=== PATIENT | male | born 1940 | race Caucasian/White ===

== ENCOUNTER 2017-03-25 09:00 | Outpatient (RCR) | payer MEDICARE, MEDICAID, SELFPAY | END 2017-04-16 | LOC: PT 09:00 | PROVIDERS: PCP Internal Medicine; Visit Provider Internal Medicine | DX: R60.0 Localized edema (principal); I87.2 Venous insufficiency (chronic) (peripheral) | CPT/HCPCS: G8987; G8988; G8989; 97140; 97162; 98960 ==

== ENCOUNTER 2018-09-21 17:13 | Inpatient (IN) | payer MEDICARE, OTHER, SELFPAY ==
[2018-09-21 17:14] VITALS: BP 125/65; PULSE 85; RESP 18; TEMP 36.6; O2SAT 93; BMI 35.9
--- NOTE | 2018-09-21 17:21 | XR_ITS ---
XR hip LT 2-3V w/pelvis HISTORY: Posttraumatic pain ITS.REASON: pain ORDERING PHYSICIAN: Zach Man MD PATIENT AGE: 77 years COMPARISON: 10/01/2016 FINDINGS: There is a nondisplaced minimally impacted left femoral neck fracture. Mild osteoarthritic changes of the left hip. No evidence of dislocation. Prior Gamma nail placement on the right with old right intertrochanteric fracture. IMPRESSION: Nondisplaced mildly impacted transcervical left femoral neck fracture
[2018-09-21 17:32] VITALS: BP 139/63; PULSE 78; O2SAT 93
--- NOTE | 2018-09-21 17:44 | PC.NURSE ---
pt gone to xray
--- NOTE | 2018-09-21 17:47 | XR_ITS ---
XR chest AP HISTORY: Fall with pain ITS.REASON: fall ORDERING PHYSICIAN: Zach Man MD PATIENT AGE: 77 years COMPARISON: 07/16/2015 FINDINGS: Low lung volumes. Cardiomegaly with mild prominence of mediastinum which may be due to the AP portable supine technique. No lobar consolidation or collapse. No acute bony findings. Degenerative changes are present involving the right shoulder. IMPRESSION: No acute finding, cardiomegaly
[2018-09-21 18:13] VITALS: BP 135/60; PULSE 67; O2SAT 98
--- NOTE | 2018-09-21 18:16 | PC.NURSE ---
pt return from xray
--- NOTE | 2018-09-21 18:21 | HMH.EDGENADL ---
ED Disposition Clinical Impression: Closed left hip fracture Qualifiers: Encounter type: initial encounter Qualified Code(s): S72.002A - Fracture of unspecified part of neck of left femur, initial encounter for closed fracture Disposition: Admitted As Inpatient Condition on Discharge: Fair - Critical Care Critical Care Time: No Attestation: On 09/21/18, the high probability of a clinically significant, sudden or life threatening deterioration of the following system(s) required my full and direct attention, intervention and personal management. The time I documented below is in addition to time spent performing reported procedures but includes the following listed in this critical care notation. Medical Decision Making - Corby Inquiry Pt receiving controlled substance: Yes Corby was queried for this patient: No Reason not queried -: Emergent pt cond-no time Risks and benefits of using a controlled substance: were not discussed with pt by me Vital Signs: 09/21/18 17:14 09/21/18 17:32 09/21/18 18:13 Temperature 97.8 F Temperature Source Oral Pulse Rate [Left Radial] 85 78 67 Respiratory Rate 18 Blood Pressure [Right Arm] 125/65 139/63 135/60 Blood Pressure Mean [Right Arm] 85 88 85 Blood Pressure Source [Right Arm] Automatic Cuff Blood Pressure Position [Right Arm] Sitting 02 Sat by Pulse Oximetry 93 L 93 L 98 Oxygen Delivery Method Room Air Orders (Tests/Meds): ED MEDICATIONS Discontinued Medications Generic Name Dose Route Start Last Admin Trade Name Freq PRN Reason Stop Dose Admin Morphine Sulfate 4 mg 09/21/18 18:25 09/21/18 18:41 Morphine 4mg/Ml Syringe IV 09/21/18 18:26 4 mg ONCE ONE Administration Ondansetron HCl 4 mg 09/21/18 18:25 09/21/18 18:41 Zofran 4mg/2ml Vial IV 09/21/18 18:26 4 mg ONCE ONE Administration ORDERS Category Date Time Status Hip XR left minimum 2 views [XR hip LT 2-3V w/pelvis] Exams 09/21/18 17:21 Taken Stat XR chest AP Stat Exams 09/21/18 17:47 Taken Complete Blood Count Auto Diff Stat Lab 09/21/18 18:55 Received Comprehensive Metabolic Panel Stat Lab 09/21/18 18:55 Received PT/PTT Stat Lab 09/21/18 18:55 Received Urinalysis and Microscopic Stat Lab 09/21/18 18:29 Ordered - Radiology Data #1 Image(s): Chest, Hip Image Reviewed: Yes I reviewed the patient's radiology image Hip: Impacted subcapital fracture Chest: Cardiomegaly without acute process - ECG Data Tracing #1 EKG interpreted by Zach Man MD: Rhythm: sinus Rate: 67 [place]: Left Ectopy: none Conduction: Right bundle branch block ST Segment Changes: none T Wave Changes: none Q Waves: none No evidence of acute ischemia or injury Prior electrocardiagrams reviewed. No change from prior tracings. - Physician Consults Physician Consulted: Amador Time: 18:35 Reason -: Orthopedic Eval/Care Comment/Response: She will consult Additional Consult: Walt Luna Time: 18:35 Reason -: Admission Comment/Response: Agrees to admit the patient to the hospital. We discussed the patient's clinical information, including history, exam, laboratory and radiology results and ED course. Per hospital procedure, I will write temporary bridge inpatient orders on the patient. Specific orders requested by the admitting physician: Per orthopedics General Adult HPI - General Chief complaint: Fall Stated complaint: fall Time Seen by Provider: 09/21/18 18:22 Mode of Arrival: EMS Limitations: No Limitations Description of Symptoms (Recalled from ER Triage Doc. by RN): States he was cleaning the windows in his truck and slipped on the side door/floor area and hit his left hip on the ground. Denies hitting head, states he only hit his hip. - History of Present Illness HPI narrative: Brought in by ambulance for a fall with left hip injury. States that he landed on his left hip and has a large pocket knife in his back pocket that he someh
--- NOTE | 2018-09-21 18:24 | PC.NURSE ---
DR JUNIOR BEING PAGED AT THIS TIME
--- NOTE | 2018-09-21 18:25 | ED_ITS ---
ED Disposition Clinical Impression: Closed left hip fracture Qualifiers: Encounter type: initial encounter Qualified Code(s): S72.002A - Fracture of unspecified part of neck of left femur, initial encounter for closed fracture Disposition: Admitted As Inpatient Condition on Discharge: Fair - Critical Care Critical Care Time: No Attestation: On 09/21/18, the high probability of a clinically significant, sudden or life threatening deterioration of the following system(s) required my full and direct attention, intervention and personal management. The time I documented below is in addition to time spent performing reported procedures but includes the following listed in this critical care notation. Medical Decision Making - Corby Inquiry Pt receiving controlled substance: Yes Corby was queried for this patient: No Reason not queried -: Emergent pt cond-no time Risks and benefits of using a controlled substance: were not discussed with pt by me Vital Signs: 09/21/18 17:14 09/21/18 17:32 09/21/18 18:13 Temperature 97.8 F Temperature Source Oral Pulse Rate [Left Radial] 85 78 67 Respiratory Rate 18 Blood Pressure [Right Arm] 125/65 139/63 135/60 Blood Pressure Mean [Right Arm] 85 88 85 Blood Pressure Source [Right Arm] Automatic Cuff Blood Pressure Position [Right Arm] Sitting 02 Sat by Pulse Oximetry 93 L 93 L 98 Oxygen Delivery Method Room Air Orders (Tests/Meds): ED MEDICATIONS Discontinued Medications Generic Name Dose Route Start Last Admin Trade Name Freq PRN Reason Stop Dose Admin Morphine Sulfate 4 mg 09/21/18 18:25 09/21/18 18:41 Morphine 4mg/Ml Syringe IV 09/21/18 18:26 4 mg ONCE ONE Administration Ondansetron HCl 4 mg 09/21/18 18:25 09/21/18 18:41 Zofran 4mg/2ml Vial IV 09/21/18 18:26 4 mg ONCE ONE Administration ORDERS Category Date Time Status Hip XR left minimum 2 views [XR hip LT 2-3V w/pelvis] Exams 09/21/18 17:21 Elder en Stat XR chest AP Stat Exams 09/21/18 17:47 Taken Complete Blood Count Auto Diff Stat Lab 09/21/18 18:55 Received Comprehensive Metabolic Panel Stat Lab 09/21/18 18:55 Received PT/PTT Stat Lab 09/21/18 18:55 Received Urinalysis and Microscopic Stat Lab 09/21/18 18:29 Ordered - Radiology Data #1 Image(s): Chest, Hip Image Reviewed: Yes I reviewed the patient's radiology image Hip: Impacted subcapital fracture Chest: Cardiomegaly without acute process - ECG Data Tracing #1 EKG interpreted by Zach Man MD: Rhythm: sinus Rate: 67 [place]: Left Ectopy: none Conduction: Right bundle branch block ST Segment Changes: none T Wave Changes: none Q Waves: none No evidence of acute ischemia or injury Prior electrocardiagrams reviewed. No change from prior tracings. - Physician Consults Physician Consulted: Amador Time: 18:35 Reason -: Orthopedic Eval/Care Comment/Response: She will consult Additional Consult: Walt Luna Time: 18:35 Reason -: Admission Comment/Response: Agrees to admit the patient to the hospital. We discussed the patient's clinical information, including history, exam, laboratory and radiology resu
--- NOTE | 2018-09-21 18:27 | PC.NURSE ---
SPEAKING WITH DR JUNIOR AT THIS TIME
--- NOTE | 2018-09-21 18:32 | PC.NURSE ---
SPEAKING WITH DR ECHEVERRIA
--- NOTE | 2018-09-21 19:16 | PC.NURSE ---
report given to jyothi
[2018-09-21 19:17] LABS: Alanine Aminotransferase 29 U/L (12-78); Albumin Level 3.4 gm/dL (3.4-5.0); Albumin/Globulin Ratio 1.1 (1.1-1.8); Alkaline Phosphatase 49 U/L (46-116); Anion Gap 12.9 mEq/L (5-15); Aspartate Amino Transferase 15 U/L (15-37); Bilirubin,Total 0.5 mg/dL (0.2-1.0); Blood Urea Nitrogen 21 mg/dL (7-18); Carbon Dioxide 26 mmol/L (21.0-32.0); Chloride 112 mmol/L (98-107); Creatinine Clearance Estimated 91 mL/min (50-200); Creatinine,Serum 1.15 mg/dL (0.70-1.30); Estimated Glomerular Filt Rate 62 ml/min (>60); GFR (African American) 75 ML/MIN (>60); Glucose 119 mg/dL (74-106); Potassium 3.9 mmoL/L (3.5-5.1); Sodium 147 mmol/L (136-145); Total Protein,Serum 6.4 gm/dL (6.4-8.2)
[2018-09-21 19:21] LABS: Activated Partial Thrombo Time 26.7 seconds (23.6-34.0); INR 1.03 (0.9-1.1); Prothrombin Time 10.7 seconds (9.4-11.8)
[2018-09-21 19:26] LABS: Basophils % 0.1 % (0.1-2.0); Eosinophils % 0.2 % (0.1-12.0); Hemoglobin 14.1 g/dL (14.1-18.0); Lymphocytes # 1.6 K/mm3 (0.7-4.5); Lymphocytes % 13.2 % (10-50); Mean Corpuscular HGB Conc 32.8 g/dL (31.8-35.4); Mean Corpuscular Hemoglobin 28.1 pg (27.0-31.2); Mean Corpuscular Volume 85.8 fl (80-94); Monocytes # 0.8 K/mm3 (0.1-1.0); Monocytes % 6.6 % (1.7-9.3); Neutrophils # 9.5 K/mm3 (1.8-7.8); Neutrophils % 79.8 % (37.0-80.0); Platelet Count 254 K/mm3 (142-424); Red Blood Count 5.02 M/mm3 (4.60-6.20); White Blood Count 11.9 K/mm3 (4.8-10.8)
[2018-09-21 19:41] VITALS: BP 136/67; PULSE 65; RESP 17; TEMP 36.8; O2SAT 97
--- NOTE | 2018-09-21 19:42 | PC.NURSE ---
Received report from Linus Macdonald RN
[2018-09-21 20:07] VITALS: BP 160/77; PULSE 82; RESP 18; TEMP 37.1; O2SAT 94; BMI 34.0
--- NOTE | 2018-09-21 20:07 | PC.NURSE ---
pt arrived to floor via stretcher per ED staff
--- NOTE | 2018-09-21 20:42 | CT_ITS ---
CT hip LT wo con INDICATION: Left hip pain following injury, evaluate fracture ITS.REASON: L hip fx ORDERING PHYSICIAN: Brayden Luna MD PATIENT AGE: 77 years COMPARISON: None TECHNIQUE: Axial images are obtained without contrast. Sagittal and coronal reformatted images are reviewed as well. All CT scans at the facility use one or more dose reduction, viz: automated exposure control, ma/kV adjustment per patient size (including targeted exams where dose is matched to indication, i.e. head), or iterative reconstruction technique. FINDINGS: There is a mildly impacted transcervical femoral neck fracture. There is minimal anterior displacement and external rotation of the distal fracture fragment No evidence of dislocation. No lytic or blastic change. There are mild osteoarthritic changes. Prostate is mildly enlarged. IMPRESSION: Minimally displaced and impacted transcervical left femoral neck fracture
--- NOTE | 2018-09-21 20:50 | PC.NURSE ---
Pt taken by bed to CT at this time by Rad staff.
[2018-09-21 20:58] LABS: Microscopic, Urine URINE MICROSCOPIC (MICROSCOPIC)
[2018-09-21 21:00] LABS: Appearance,Urine CLEAR (Clear); Bilirubin,Urine Negative (Negative); Blood, Urine Negative (Negative); Color,Urine YELLOW (Yellow); Glucose,Urine (UA) Negative (Negative); Ketones,Urine Negative (Negative); Leukocyte Esterase,Urine Negative (Negative); Nitrate,Urine Negative (Negative); Protein,Urine Negative (Negative)
[2018-09-21 21:10] LABS: Bacteria,Urine Trace /lpf
[2018-09-21 21:45] VITALS: O2SAT 94
[2018-09-22] VITALS (22 sets, daily range): BP systolic 116–153; BP diastolic 47–84; PULSE 68–86; RESP 16–20; TEMP 36.4–43; O2SAT 94–99; BMI 34.0
--- NOTE | 2018-09-22 06:44 | PC.NURSE ---
Pt. slept at interval this shift. Pt did receive a bath. pt c/o pain x1 after being rolled for bath. prn pain medication given. vss. will cont. to monitor.
--- NOTE | 2018-09-22 07:09 | HMH.PHAVTE ---
[facility] VTE Monitoring - Patient Demographics Admission date: 09/21/18 Report Date: 09/22/18 Time: 07:09 Allergies/Adverse Reactions: Patient Allergies No Known Allergies Allergy (Unverified 04/06/17 14:29) Height: 1.83 m Weight: 113.993 kg Patient Problems: Current Active Problems (Updated 09/21/18 @ 18:35 by Zach Man MD) Closed left hip fracture (Acute) - VTE Risk Labs: VTE Related Lab Results Hgb 14.1 g/dL (14.1-18.0) 09/21/18 18:55 Hct 43.0 % (42.0-52.0) 09/21/18 18:55 Plt Count 254 K/mm3 (142-424) 09/21/18 18:55 PT 10.7 seconds (9.4-11.8) 09/21/18 18:55 INR 1.03 (0.9-1.1) 09/21/18 18:55 APTT 26.7 seconds (23.6-34.0) 09/21/18 18:55 BUN 21 mg/dL (7-18) H 09/21/18 18:55 Creatinine 1.15 mg/dL (0.70-1.30) 09/21/18 18:55 Estimated Creat Clear 91 mL/min (50-200) 09/21/18 18:55 Was VTE Risk Assessment Performed: Yes VTE Score: 4 VTE Risk Level: Low Risk Clinical Trial Participant: No - Prophylaxis VTE Prophylaxis Ordered?: Yes Types of VTE Prophylaxis: TEDS Knee High
--- NOTE | 2018-09-22 08:35 | CA_ITS ---
PROCEDURE: 2-D M-mode and color Doppler study INDICATIONS FOR THE TEST: Chest pain COPD Heart Murmur Tobacco Smoking Palpitations Fatigue Syncope Edema Hypertension Diabetes Mellitus Rheumatic Fever SOB VELAZQUEZ Obesity Hyperlipidemia Family History HD Additional History MURMUR,PRE-OP FX HIP TDS PT FLAT DUE TO HIP FX PATIENT INFORMATION HEIGHT: 72 WEIGHT:251 GENDER: Male B/P:135/60 2-D/M-MODE INTERPRETATION: 2-D MEASUREMENTS OBSERVED VALUES IN CMS Right Ventricular Dimension (RVDd) 2.1 Interventricular Septum (Thickness)(IVsd) 1.4 Left Ventricular Internal Dimensions(LVIDd) 5.4 Left Ventricular Posterior Wall (Thickness)(LVPWd) 1.4 Aortic Root 3.4 Aortic Cusp Separation 1.1 Left Atrial Dimensions (LAD) 3.7 2D 1. Left atrium is mildly enlarged, left ventricle is normal size, mild concentric left ventricular hypertrophy, visually estimated ejection fraction 55% with no regional wall motion abnormality. 2. The right atrium and right ventricle are normal size and contractility. 3. The aortic valve is thickened and calcified with restriction in the leaflet mobility 4. The mitral and tricuspid valvular grossly normal. 5. The pulmonic valve is poorly visualized. 6. No significant pericardial effusion noted. DOPPLER INTERROGATION: 1. The maximum aortic out flow velocity recorded study 3.7 m/s, resulting in a mean gradient across valve of 34 mmHg, valve area is 1.3 sq cm represents moderate aortic stenosis, there is mild aortic insufficiency. 2. The mitral inflow velocity within normal range, there is no mitral stenosis, there is mild mitral regurgitation, Doppler evidence of impaired LV relaxation seen, there is no tissue Doppler performed. 3. Mild tricuspid regurgitation, tricuspid regurgitation jet velocity is inadequate for calculation of the right ventricular systolic pressure. CONCLUSION: 1. Mildly enlarged left atrium, normal left ventricular size, mild concentric left ventricular hypertrophy, visually estimated ejection fraction of 55% with no regional wall motion abnormality, Doppler evidence of impaired relaxation seen. 2. Thickened and calcified aortic valve with mean gradient across valve of 34 mmHg, aortic valve area of 1.3 sq cm represents moderate aortic stenosis, there is mild aortic insufficiency. 3. Mild tricuspid regurgitation 4. No significant pericardial effusion noted.
--- NOTE | 2018-09-22 09:11 | XR_ITS ---
EXAM: XR lumbar spine 2-3V HISTORY: ITS.REASON: back pain s/p fall ORDERING PHYSICIAN: Brayden Luna MD PATIENT AGE: 77 years COMPARISON: None FINDINGS: There is normal alignment. No obvious fracture or dislocation is evident. Mild osteophyte formation at L3 IMPRESSION: No acute finding
--- NOTE | 2018-09-22 09:11 | XR_ITS ---
EXAM: XR thoracic spine 2V HISTORY: ITS.REASON: back pain s/p fall Comparison: None FINDINGS: This exam is very limited. The upper thoracic spine is not adequately visualized on the lateral view and cannot be cleared radiographically. If symptoms persists, consider CT for follow-up evaluation. The mid and lower aspect of the thoracic spine has an unremarkable appearance. IMPRESSION: 1. Incomplete visualization of the upper thoracic spine. 2. Unremarkable mid and lower thoracic spine
--- NOTE | 2018-09-22 09:13 | HMH.ORTHOCON ---
*Admission Date: 09/21/18 *Reason for consult:: left hip fracture *History of present illness: 77 year-old gentleman who fell at home yesterday as he was cleaning the windows in his truck. He slipped and fell onto the left side; he had severe pain in the left hip and was unable to stand. EMS brought him to [facility] where a hip fracture was diagnosed. He denies numbness or tingling in the LLE, but does report pain in the lower back. He fractured the right hip several years ago and had surgery for this. He has mild dementia but appears healthy otherwise; his PCP is Dr. Palacio, admitted to Dr. Luna, who is evaluating him this morning. The patient is not on any anticoagulants and admission labs were all within normal limits. Review of Systems - Review of Systems Review of systems:: pertinent systems reviewed and negative unless documented below - Constitutional Denies weakness - Eyes Denies change in vision - ENT Denies dizziness - *Cardiovascular Denies chest pain, Denies shortness of breath - *Gastrointestinal Denies abdominal pain - *Musculoskeletal Reports joint pain - *Neurologic Denies headache(s), Denies numbness, Denies weakness [facility] History I have reviewed the patient's past medical history: Yes *Have you ever received a pneumonia vaccine?: Yes *Have you received a flu vaccine this season?: Yes Laterality Cases: Right: Arthroscopy Shoulder, Other (R hip DHS for fracture ) Other Surgeries: Yes: Colon Resection (Pt states he had some of his colton removed.) Fractures: Yes ((R) hip) - *Social History Educational Level: Completed High School Alcohol Intake: never *Occupational Status:: retired Housing: house Household Members: spouse *Travel in the last 8 weeks: None - Psychiatric History Expresses thoughts of harming self/others: None Suicide Plan Description: No Plan Family Hx:: No significant family history Meds Home Medications Medication Instructions Recorded Confirmed Type Aspirin [Aspir 81] 81 mg PO DAILY 09/21/18 09/21/18 History Ibuprofen [Ibuprofen 200MG Capsule] 200 mg PO QIDP PRN 09/21/18 09/21/18 History predniSONE [Deltasone 10mg tablet] 20 tab PO BID 09/21/18 09/21/18 History Allergies Allergy/AdvReac Type Severity Reaction Status Date / Time No Known Allergies Allergy Unverified 04/06/17 14:29 Exam Vital signs and Labs for Last 24 Hours: Temp Pulse Resp BP Pulse Ox 98.7 F 73 18 116/47 L 95 09/22/18 07:30 09/22/18 07:30 09/22/18 07:30 09/22/18 07:30 09/22/18 07:30 Laboratory Results - last 24 hr 09/21/18 18:55: WBC 11.9 H, RBC 5.02, Hgb 14.1, Hct 43.0, MCV 85.8, MCH 28.1, MCHC 32.8, RDW 14.0, Plt Count 254, MPV 7.0 L, Neut % (Auto) 79.8, Lymph % (Auto) 13.2, [place] % (Auto) 6.6, Eos % (Auto) 0.2, Baso % (Auto) 0.1, Neut # (Auto) 9.5 H, Lymph # (Auto) 1.6, [place] # (Auto) 0.8, Eos # (Auto) 0.0, Baso # (Auto) 0.0 09/21/18 18:55: PT 10.7, INR 1.03, APTT 26.7 09/21/18 18:55: Sodium 147 H, Potassium 3.9, Chloride 112 H, Carbon Dioxide 26, Anion Gap 12.9, BUN 21 H, Creatinine 1.15, Estimated Creat Clear 91, Estimated GFR 62, Est GFR ( Amer) 75, Glucose 119 H, Calcium 9.0, Total Bilirubin 0.5, AST 15, ALT 29, Alkaline Phosphatase 49, Total Protein 6.4, Albumin 3.4, Globulin 3.0, Albumin/Globulin Ratio 1.1 09/21/18 20:50: Urine Color Yellow, Urine Appearance Clear, Urine pH 6.0, Ur Specific [place] 1.020, Urine Protein Negative, Urine Glucose (UA) Negative, Urine Ketones Negative, Urine Blood Negative, Urine Nitrate Negative, Urine Bilirubin Negative, Urine Urobilinogen 1.0, Ur Leukocyte Esterase Negative, Urine Bacteria Trace I & O for Last 24 hours: Intake & Output 09/19/18 09/20/18 09/21/18 09/22/18 11:59 11:59 11:59 11:59 Intake Total 249 / 249 Output Total 350 / 350 Balance -101 / -101 Weight 251 lb 5 oz - Constitutional no acute distress, obese, cooperative - *Routine HEENT Exam Head: Present: normocephalic, atraumatic Eye: Present: EOMI
--- NOTE | 2018-09-22 09:16 | P.CONS_ITS ---
*Admission Date: 09/21/18 *Reason for consult:: left hip fracture *History of present illness: 77 year-old gentleman who fell at home yesterday as he was cleaning the windows in his truck. He slipped and fell onto the left side; he had severe pain in the left hip and was unable to stand. EMS brought him to [facility] where a hip fracture was diagnosed. He denies numbness or tingling in the LLE, but does report pain in the lower back. He fractured the right hip several years ago and had surgery for this. He has mild dementia but appears healthy otherwise; his PCP is Dr. Palacio, admitted to Dr. Luna, who is evaluating him this morning. The patient is not on any anticoagulants and admission labs were all within normal limits. Review of Systems - Review of Systems Review of systems:: pertinent systems reviewed and negative unless documented be low - Constitutional Denies weakness - Eyes Denies change in vision - ENT Denies dizziness - *Cardiovascular Denies chest pain, Denies shortness of breath - *Gastrointestinal Denies abdominal pain - *Musculoskeletal Reports joint pain - *Neurologic Denies headache(s), Denies numbness, Denies weakness [facility] History I have reviewed the patient's past medical history: Yes *Have you ever received a pneumonia vaccine?: Yes *Have you received a flu vaccine this season?: Yes Laterality Cases: Right: Arthroscopy Shoulder, Other (R hip DHS for fracture ) Other Surgeries: Yes: Colon Resection (Pt states he had some of his colton removed.) Fractures: Yes ((R) hip) - *Social History Educational Level: Completed High School Alcohol Intake: never *Occupational Status:: retired Housing: house Household Members: spouse *Travel in the last 8 weeks: None - Psychiatric History Expresses thoughts of harming self/others: None Suicide Plan Description: No Plan Family Hx:: No significant family history Meds Home Medications Medication Instructions Recorded Confirmed Type Aspirin [Aspir 81] 81 mg PO DAILY 09/21/18 09/21/18 History Ibuprofen [Ibuprofen 200MG Capsule] 200 mg PO QIDP PRN 09/21/18 09/21/18 History predniSONE [Deltasone 10mg tablet] 20 tab PO BID 09/21/18 09/21/18 History Allergies Allergy/AdvReac Type Severity Reaction Status Date / Time No Known Allergies Allergy Unverified 04/06/17 14:29 Exam Vital signs and Labs for Last 24 Hours: Temp Pulse Resp BP Pulse Ox 98.7 F 73 18 116/47 L 95 09/22/18 07:30 09/22/18 07:30 09/22/18 07:30 09/22/18 07:30 09/22/18 07:30 Laboratory Results - last 24 hr 09/21/18 18:55: WBC 11.9 H, RBC 5.02, Hgb 14.1, Hct 43.0, MCV 85.8, MCH 28.1, MCHC 32.8, RDW 14.0, Plt Count 254, MPV 7.0 L, Neut % (Auto) 79.8, Lymph % (Auto) 13.2, [place] % (Auto) 6.6, Eos % (Auto) 0.2, Baso % (Auto) 0.1, Neut # (Auto) 9.5 H, Lymph # (Auto) 1.6, [place] # (Auto) 0.8, Eos # (Auto) 0.0, Baso # (Auto) 0.0 09/21/18 18:55: PT 10.7, INR 1.03, APTT 26.7 09/21/18 18:55: Sodium 147 H, Potassium 3.9, Chloride 112 H, Carbon Dioxide 26, Anion Gap 12.9, BUN 21 H, Creatinine 1.15, Estimated Creat Clear 91, Estimated GFR 62, Est GFR ( Amer) 75, Glucose 119 H, Calcium 9.0, Total Bilirubin 0.5, AST 15, ALT 29, Alkaline Phosphatase 49, Total Protein 6.4, Albumin 3.4, Globulin 3.0, Albumin/Globulin Ratio 1.1 09/21/18 20:50: Urine Color Yellow, Urine Appearance Clear, Urine pH 6.0, Ur
--- NOTE | 2018-09-22 10:30 | PC.NURSE ---
Patient off floor for surgery.
--- NOTE | 2018-09-22 10:56 | HMH.HP ---
*Admission Date: 09/21/18 *Chief complaint: fall, left hip pain *History of present illness: 77 year old male with mild dementia presented to ED with left hip pain following a fall at home. Patient denies any dizziness, shortness of breath or CP prior to fall. Reports he lost his balance, which happens all the time. He denies any cardiac or pulmonary history. No exertional symptoms, although states he doesn't do much. In the ED, he was found to have left hip fracture. He was admitted for surgery consult and repair. [facility] History I have reviewed the patient's past medical history: Yes *Have you ever received a pneumonia vaccine?: Yes *Have you received a flu vaccine this season?: Yes Laterality Cases: Right: Arthroscopy Shoulder, Total Hip Replacement, Other (R hip DHS for fracture ) Other Surgeries: Yes: Colon Resection (Pt states he had some of his colton removed.) Fractures: Yes ((R) hip) - *Social History Educational Level: Completed High School Alcohol Intake: never *Occupational Status:: retired Housing: house Household Members: spouse *Travel in the last 8 weeks: None - Psychiatric History Expresses thoughts of harming self/others: None Suicide Plan Description: No Plan Family Hx:: No significant family history Review of Systems - Review of Systems Review of systems:: pertinent systems reviewed and negative unless documented below - Constitutional Reports weakness - *Musculoskeletal Reports joint pain, Reports back pain - *Neurologic Denies dizziness, Denies headache(s), Denies numbness, Denies weakness Meds Home Medications Medication Instructions Recorded Confirmed Type Aspirin [Aspir 81] 81 mg PO DAILY 09/21/18 09/21/18 History Ibuprofen [Ibuprofen 200MG Capsule] 200 mg PO QIDP PRN 09/21/18 09/21/18 History predniSONE [Deltasone 10mg tablet] 20 tab PO BID 09/21/18 09/21/18 History Allergies Allergy/AdvReac Type Severity Reaction Status Date / Time No Known Allergies Allergy Unverified 04/06/17 14:29 Exam Vital signs and Labs for Last 24 Hours: Temp Pulse Resp BP Pulse Ox 98.7 F 73 18 116/47 L 94 L 09/22/18 07:30 09/22/18 07:30 09/22/18 07:30 09/22/18 07:30 09/22/18 08:00 Laboratory Results - last 24 hr 09/21/18 18:55: WBC 11.9 H, RBC 5.02, Hgb 14.1, Hct 43.0, MCV 85.8, MCH 28.1, MCHC 32.8, RDW 14.0, Plt Count 254, MPV 7.0 L, Neut % (Auto) 79.8, Lymph % (Auto) 13.2, [place] % (Auto) 6.6, Eos % (Auto) 0.2, Baso % (Auto) 0.1, Neut # (Auto) 9.5 H, Lymph # (Auto) 1.6, [place] # (Auto) 0.8, Eos # (Auto) 0.0, Baso # (Auto) 0.0 09/21/18 18:55: PT 10.7, INR 1.03, APTT 26.7 09/21/18 18:55: Sodium 147 H, Potassium 3.9, Chloride 112 H, Carbon Dioxide 26, Anion Gap 12.9, BUN 21 H, Creatinine 1.15, Estimated Creat Clear 91, Estimated GFR 62, Est GFR ( Amer) 75, Glucose 119 H, Calcium 9.0, Total Bilirubin 0.5, AST 15, ALT 29, Alkaline Phosphatase 49, Total Protein 6.4, Albumin 3.4, Globulin 3.0, Albumin/Globulin Ratio 1.1 09/21/18 20:50: Urine Color Yellow, Urine Appearance Clear, Urine pH 6.0, Ur Specific [place] 1.020, Urine Protein Negative, Urine Glucose (UA) Negative, Urine Ketones Negative, Urine Blood Negative, Urine Nitrate Negative, Urine Bilirubin Negative, Urine Urobilinogen 1.0, Ur Leukocyte Esterase Negative, Urine Bacteria Trace I & O for Last 24 hours: Intake & Output 09/19/18 09/20/18 09/21/18 09/22/18 11:59 11:59 11:59 11:59 Intake Total 249 / 249 Output Total 350 / 350 Balance -101 / -101 Weight 251 lb 5 oz Narrative: ALert and oriented x3 with some confusion. Rate and rhythm regular. 3/6 holosystolic murmur, radiates to bilateral carotids. 1+ BLE edema. Left leg externally rotated at rest, pulses, motor and sensation intact. Lung sounds clear and equal. Abdomen soft and nontender. ENT exam unremarkable. Assessment and Plan (1) Closed left hip fracture Current visit: Yes Status: Acute Qualifiers: Encounter type: initial enco
--- NOTE | 2018-09-22 10:59 | P.HP_ITS ---
*Admission Date: 09/21/18 *Chief complaint: fall, left hip pain *History of present illness: 77 year old male with mild dementia presented to ED with left hip pain following a fall at home. Patient denies any dizziness, shortness of breath or CP prior to fall. Reports he lost his balance, which happens all the time. He denies any cardiac or pulmonary history. No exertional symptoms, although states he doesn't do much. In the ED, he was found to have left hip fracture. He was admitted for surgery consult and repair. [facility] History I have reviewed the patient's past medical history: Yes *Have you ever received a pneumonia vaccine?: Yes *Have you received a flu vaccine this season?: Yes Laterality Cases: Right: Arthroscopy Shoulder, Total Hip Replacement, Other (R hip DHS for fracture ) Other Surgeries: Yes: Colon Resection (Pt states he had some of his colton removed.) Fractures: Yes ((R) hip) - *Social History Educational Level: Completed High School Alcohol Intake: never *Occupational Status:: retired Housing: house Household Members: spouse *Travel in the last 8 weeks: None - Psychiatric History Expresses thoughts of harming self/others: None Suicide Plan Description: No Plan Family Hx:: No significant family history Review of Systems - Review of Systems Review of systems:: pertinent systems reviewed and negative unless documented below - Constitutional Reports weakness - *Musculoskeletal Reports joint pain, Reports back pain - *Neurologic Denies dizziness, Denies headache(s), Denies numbness, Denies weakness Meds Home Medications Medication Instructions Recorded Confirmed Type Aspirin [Aspir 81] 81 mg PO DAILY 09/21/18 09/21/18 History Ibuprofen [Ibuprofen 200MG Capsule] 200 mg PO QIDP PRN 09/21/18 09/21/18 History predniSONE [Deltasone 10mg tablet] 20 tab PO BID 09/21/18 09/21/18 History Allergies Allergy/AdvReac Type Severity Reaction Status Date / Time No Known Allergies Allergy Unverified 04/06/17 14:29 Exam Vital signs and Labs for Last 24 Hours: Temp Pulse Resp BP Pulse Ox 98.7 F 73 18 116/47 L 94 L 09/22/18 07:30 09/22/18 07:30 09/22/18 07:30 09/22/18 07:30 09/22/18 08:00 Laboratory Results - last 24 hr 09/21/18 18:55: WBC 11.9 H, RBC 5.02, Hgb 14.1, Hct 43.0, MCV 85.8, MCH 28.1, MCHC 32.8, RDW 14.0, Plt Count 254, MPV 7.0 L, Neut % (Auto) 79.8, Lymph % (Auto) 13.2, [place] % (Auto) 6.6, Eos % (Auto) 0.2, Baso % (Auto) 0.1, Neut # (Auto) 9.5 H, Lymph # (Auto) 1.6, [place] # (Auto) 0.8, Eos # (Auto) 0.0, Baso # (Auto) 0.0 09/21/18 18:55: PT 10.7, INR 1.03, APTT 26.7 09/21/18 18:55: Sodium 147 H, Potassium 3.9, Chloride 112 H, Carbon Dioxide 26, Anion Gap 12.9, BUN 21 H, Creatinine 1.15, Estimated Creat Clear 91, Estimated GFR 62, Est GFR ( Amer) 75, Glucose 119 H, Calcium 9.0, Total Bilirubin 0.5, AST 15, ALT 29, Alkaline Phosphatase 49, Total Protein 6.4, Albumin 3.4, Globulin 3.0, Albumin/Globulin Ratio 1.1 09/21/18 20:50: Urine Color Yellow, Urine Appearance Clear, Urine pH 6.0, Ur Specific [place] 1.020, Urine Protein Negative, Urine Glucose (UA) Negative, Urine Ketones Negative, Urine Blood Negative, Urine Nitrate Negative, Urine Bilirubin Negative, Urine Urobilinogen 1.0, Ur Leukocyte Esterase Negative, Urine Bacteria Trace I & O for Last 24 hours: Intake & O
--- NOTE | 2018-09-22 11:18 | P.PN_ITS ---
[facility] Anesthesia Checklist - Patient Identification Patient Identification: Arm Band - Structural Data Admitted From: Home Planned Operative Procedure/s: left hip hemiarthroplasty Consent for Planned Operative Procedure(s) Verified: Yes Verified Documents: Surgical Consent, History and Physical - NPO Status Verified Time NPO: 00:00 - Additional verifications Anesthesia Reactions: No - Airway Assessment C-Spine Mobility Assessed: Yes (mp2) TMJ Mobility Assessed: Yes Dentition: Good Dentition - Neurological Assessment Level of Consciousness: Awake, Alert - Anesthesia Plan Anesthesia Risk discussed: Yes Anesthesia Plan: Verified ASA Class: III Anesthesia Type: Spinal (with MAC) [facility] History I have reviewed the patient's past medical history: Yes Medical History: Reports:: Valvular Heart Disease *Have you ever received a pneumonia vaccine?: Yes *Have you received a flu vaccine this season?: Yes Laterality Cases: Right: Arthroscopy Shoulder, Total Hip Replacement, Other (R hip DHS for fracture ) Other Surgeries: Yes: Colon Resection (Pt states he had some of his colton removed.) Fractures: Yes ((R) hip) - *Social History Educational Level: Completed High School Alcohol Intake: never *Occupational Status:: retired Housing: house Household Members: spouse *Travel in the last 8 weeks: None - Psychiatric History Expresses thoughts of harming self/others: None Suicide Plan Description: No Plan Family Hx:: No significant family history
--- NOTE | 2018-09-22 15:59 | P.PN_ITS ---
[facility] Anesthesia Record Part I Intake, IV Amount: 2,100 Estimated blood loss (mL): 800 Urine output (mL): 400 Blood Products used (#): none Blood Pressure: 137/67 SaO2: 96 Pulse Rate: 72 Respiratory Rate: 18 Temperature: 98.7 F Patient is:: Awake, Drowsy, Stable Stable to PACU at:: 15:52
--- NOTE | 2018-09-22 16:00 | P.PN_ITS ---
[facility] Anesthesia Record Part II Discharge Time: 16:22 Destination: Medical Surgical Department PACU nurse assessment reviewed?: Yes Patient Condition:: Good Anesthesia Complications:: None Swallowing reflex intact?: Yes Cyanosis?: No
--- NOTE | 2018-09-22 16:01 | XR_ITS ---
XR pelvis 1-2V HISTORY: Follow-up ORIF ITS.REASON: s/p L hip hemiarthroplasty ORDERING PHYSICIAN: Brayden Luna MD PATIENT AGE: 77 years Comparison: None FINDINGS: Status post left hip arthroplasty with a bipolar prosthesis present. There is good alignment. There is postsurgical gas. There has been a prior Gamma nail inserted on the right with an old right proximal femur fracture. IMPRESSION: Good alignment status post left bipolar prosthesis placement
--- NOTE | 2018-09-22 16:29 | PC.NURSE ---
1612- radiology @ bedside getting xrays at this time.
--- NOTE | 2018-09-22 16:32 | PC.NURSE ---
1620- detailed report called to neo worthy rn on 2nd floor. 1623- pt transported to 2nd floor per sc rn & cd rn. left in care of ld rn with bed locked, in lowest position, call chinchilla in reach, & in stable condition.
[2018-09-22 16:40] LABS: Microscopic,Cath URINE MICROSCOPIC (MICROSCOPIC)
[2018-09-22 16:52] LABS: Appearance,Urine/Cath CLEAR (Clear); Bilirubin,Cath Negative (Negative); Blood, Urine/Cath Negative (Negative); Color,Urine/Cath YELLOW (Yellow); Glucose,Urine/Cath (UA) Negative (Negative); Ketones,Urine/Cath Negative (Negative); Leukocyte Esterase,Cath Negative (Negative); Nitrate,Cath Negative (Negative); Protein,Urine/Cath Negative (Negative); Specific Gravity, Urine/Cath 1.025 (1.005-1.030); Urobilinogen,Cath 0.2 EU/dl (0.2)
[2018-09-22 17:04] LABS: Bacteria,Urine/Cath TRACE /lpf; WBC,Urine/Cath Occasional #/hpf (0-3)
--- NOTE | 2018-09-22 17:40 | HMH.OPNOTE ---
Date of procedure: 09/22/18 Pre-op Diagnosis:: LEFT femoral neck fracture Post-op Diagnosis:: LEFT femoral neck fracture Procedure performed:: LEFT hip hemiarthroplasty Surgeon:: Lucero English MD Steward/Stewardess Second(s):: Ivis Wagner CST VALIDATION CONSULTANT:: Sukhwinderedilson Washburn Anesthesia: MAC, spinal Estimated blood loss (mL): 200 Clinical Note:: 77-year-old gentleman with a femoral neck fracture of the left hip. This was sustained during a mechanical fall yesterday at home. He was cleaning the windows in his truck and lost his balance, falling onto the left side. He had immediate pain and inability to ambulate, so EMS brought him to [facility] for work-up. He says that he often loses his balance and falls, and has had a right hip fracture in the past treated surgically. He denies any medical comorbidities but does have a mild case of dementia. He denies any symptoms preceding his current fall, including dizziness, lightheadedness, chest pain or shortness of breath. His primary care is Dr. Palacio; he was admitted to Dr. Luna. Dr. Luna's examination revealed a new cardiac murmur and echocardiogram was performed. This showed moderate aortic stenosis but normal ejection fraction, and he was cleared for surgery with moderate risk. His fracture appeared to be a impacted femoral neck fracture, but I questioned the displacement on lateral x-ray. A CT scan was performed, which revealed anterior displacement of the neck relative to the head and I felt there was simply not enough head present to gain purchase with cannulated screws and percutaneous pinning would inevitably fail. My recommendation was a hemiarthroplasty, and I discussed this with his family. I discussed the procedure including the technique, expected perioperative course, need for physical therapy after surgery, and the risks of the procedure. Specifically, I discussed the risk of infection, bleeding, fracture, persistent pain, and loss of mobility after surgery. The patient and his family vocalized understanding and informed consent was obtained. Operative findings:: IMPLANTS: Ninfa Accolade II cemented femoral stem, size 7 (127 deg) bipolar head: 56mm OD (28mm ID) w/28mm inner head component (+0 offset) Operative note:: The patient was identified in preoperative holding and the L hip signed by myself. He was then taken to the operating room where spinal anesthetic administered and IV sedation given. 2g Ancef was infused intravenously. The patient was then placed in the right lateral decubitus position with a peg board lateral positioner, padding all bony prominences and using an axillary roll. The left hip was then prepped and draped in the usual sterile fashion. Timeout was performed, identifying the correct patient, correct procedure and correct site. The procedure was begun by making a longitudinal, curvilinear incision over the posterolateral aspect the the left hip, centered over the greater trochanter. Subcutaneous tissue was dissected with cautery until fascia was encountered. The fascia was incised in line with the shaft of the femur distally and curved proximally; fibers of the gluteus radha were bluntly spread with finger dissection. Charnley retractor was placed under the fascia. The hip joint was visualized and there was moderate fracture hematoma present. This was evacuated and the short external rotators identified. The piriformis was tagged and reflected off the femur. Capsulotomy was completed and leaflets tagged. Corkscrew was inserted into the femoral head and it was removed intact; it measured around 56-57mm in diameter. A size 56mm femoral head trial was placed into the acetabulum and found to fit well; no 57 was available, and 58 was too large. Oscillating saw was then used to clean up the femoral neck fracture site; the neck was not resected any lower than the fracture line, but the edges cleaned up and excess bone removed. The patient has somewhat unusual a
--- NOTE | 2018-09-22 17:47 | P.OP_ITS ---
Date of procedure: 09/22/18 Pre-op Diagnosis:: LEFT femoral neck fracture Post-op Diagnosis:: LEFT femoral neck fracture Procedure performed:: LEFT hip hemiarthroplasty Surgeon:: Lucero English MD Blender Conveyor Operator(s):: Ivis Wagner CST SALES REPRESENTATIVE [facility]:: Sukhwinderedilson Washburn Anesthesia: MAC, spinal Estimated blood loss (mL): 200 Clinical Note:: 77-year-old gentleman with a femoral neck fracture of the left hip. This was sustained during a mechanical fall yesterday at home. He was cleaning the windows in his truck and lost his balance, falling onto the left side. He had immediate pain and inability to ambulate, so EMS brought him to [facility] for work-up. He says that he often loses his balance and falls, and has had a right hip fracture in the past treated surgically. He denies any medical comorbidities but does have a mild case of dementia. He denies any symptoms preceding his current fall, including dizziness, lightheadedness, chest pain or shortness of breath. His primary care is Dr. Palacio; he was admitted to Dr. Luna. Dr. Luna's examination revealed a new cardiac murmur and echocardiogram was performed. This showed moderate aortic stenosis but normal ejection fraction, and he was cleared for surgery with moderate risk. His fracture appeared to be a impacted femoral neck fracture, but I questioned the displacement on lateral x-ray. A CT scan was performed, which revealed anterior displacement of the neck relative to the head and I felt there was simply not enough head present to gain purchase with cannulated screws and percutaneous pinning would inevitably fail. My recommendation was a hemiarthroplasty, and I discussed this with his family. I discussed the procedure including the technique, expected perioperative course, need for physical therapy after surgery, and the risks of the procedure. Specifically, I discussed the risk of infection, bleeding, fracture, persistent pain, and loss of mobility after surgery. The patient and his family vocalized understanding and informed consent was obtained. Operative findings:: IMPLANTS: Ninfa Accolade II cemented femoral stem, size 7 (127 deg) bipolar head: 56mm OD (28mm ID) w/28mm inner head component (+0 offset) Operative note:: The patient was identified in preoperative holding and the L hip signed by myself. He was then taken to the operating room where spinal anesthetic administered and IV sedation given. 2g Ancef was infused intravenously. The patient was then placed in the right lateral decubitus position with a peg board lateral positioner, padding all bony prominences and using an axillary roll. The left hip was then prepped and draped in the usual sterile fashion. Timeout was performed, identifying the correct patient, correct procedure and correct site. The procedure was begun by making a longitudinal, curvilinear incision over the posterolateral aspect the the left hip, centered over the greater trochanter. Subcutaneous tissue was dissected with cautery until fascia was encountered. The fascia was incised in line with the shaft of the femur distally and curved proximally; fibers of the gluteus radha were bluntly spread with finger dissection. Charnley retractor was placed under the fascia. The hip joint was visualized and there was moderate fracture hematoma present. This was evacuated and the short external rotators identified. The piriformis was tagged and reflected off the femur. Capsulotomy was completed and leaflets tagged. Corkscrew was inserted into the femoral head and it was removed intact; it measured around 56-57mm in diameter. A size 56mm femoral head trial was placed into the acetabulum and found to fit well; no 57 was available, and 58 was
[2018-09-23] VITALS (8 sets, daily range): BP systolic 116–145; BP diastolic 57–86; PULSE 84–95; RESP 19–20; TEMP 37.2–37.8; O2SAT 90–94
--- NOTE | 2018-09-23 03:52 | PC.NURSE ---
Pt. rested well this am. Is alert and oriented to person. Pt. has been slightly confused this shift. VS have remained stable. Lung sounds are clear and bowel sounds are active. Dressing to hip remains clean, dry and intact. Pt. has not complained of any pain this shift. Will continue to monitor.
[2018-09-23 06:42] LABS: Anion Gap 13.3 mEq/L (5-15); Blood Urea Nitrogen 19 mg/dL (7-18); Calcium 8.5 mg/dL (8.5-10.1); Carbon Dioxide 25 mmol/L (21.0-32.0); Chloride 108 mmol/L (98-107); Creatinine Clearance Estimated 92 mL/min (50-200); Creatinine,Serum 1.08 mg/dL (0.70-1.30); Estimated Glomerular Filt Rate 66 ml/min (>60); GFR (African American) 80 ML/MIN (>60); Glucose 113 mg/dL (74-106); Potassium 4.3 mmoL/L (3.5-5.1); Sodium 142 mmol/L (136-145)
[2018-09-23 07:02] LABS: Basophils % 0.2 % (0.1-2.0); Eosinophils # 0.1 K/mm3 (0.0-0.4); Eosinophils % 1.2 % (0.1-12.0); Hematocrit 38.9 % (42.0-52.0); Hemoglobin 12.6 g/dL (14.1-18.0); Lymphocytes # 1.2 K/mm3 (0.7-4.5); Lymphocytes % 13.2 % (10-50); Mean Corpuscular HGB Conc 32.4 g/dL (31.8-35.4); Mean Corpuscular Hemoglobin 27.8 pg (27.0-31.2); Mean Corpuscular Volume 85.8 fl (80-94); Mean Platelet Volume 7.6 fl (7.4-10.4); Monocytes % 10.7 % (1.7-9.3); Neutrophils # 6.7 K/mm3 (1.8-7.8); Neutrophils % 74.7 % (37.0-80.0); Platelet Count 206 K/mm3 (142-424); Red Blood Count 4.53 M/mm3 (4.60-6.20); Red Cell Distribution Width 14.1 % (11.5-17.5)
--- NOTE | 2018-09-23 07:48 | HMH.ACPN2 ---
Internal Medicine - PN: Subj *Date: 09/23/18 *Time: 08:48 Interval history: Stable overnight. Pain controlled. No bleeding, chest pain, shortness of breath, pain at surgical site. Patient working with physical therapy this morning. Tolerating regular diet. Does appear to have some signs of delirium on top of dementia, speaking of soldiers in his room this morning. Patient is redirectable however and states that he is in [place] at [facility] and knows his name and birthdate. Exam Vital signs and Labs for Last 24 Hours: Temp Pulse Resp BP Pulse Ox 99.2 F 89 20 138/60 90 L 09/23/18 04:00 09/23/18 04:00 09/23/18 04:00 09/23/18 04:00 09/23/18 04:00 Laboratory Results - last 24 hr 09/22/18 11:45: Urine Color Yellow, Urine Appearance Clear, Urine pH 6.0, Ur Specific [place] 1.025, Urine Protein Negative, Urine Glucose (UA) Negative, Urine Ketones Negative, Urine Blood Negative, Urine Nitrate Negative, Urine Bilirubin Negative, Urine Urobilinogen 0.2, Ur Leukocyte Esterase Negative, Urine WBC Occasional, Urine Bacteria Trace 09/23/18 06:04: WBC 9.0, RBC 4.53 L, Hgb 12.6 L, Hct 38.9 L, MCV 85.8, MCH 27.8, MCHC 32.4, RDW 14.1, Plt Count 206, MPV 7.6, Neut % (Auto) 74.7, Lymph % (Auto) 13.2, [place] % (Auto) 10.7 H, Eos % (Auto) 1.2, Baso % (Auto) 0.2, Neut # (Auto) 6.7, Lymph # (Auto) 1.2, [place] # (Auto) 1.0, Eos # (Auto) 0.1, Baso # (Auto) 0.0 09/23/18 06:04: Sodium 142, Potassium 4.3, Chloride 108 H, Carbon Dioxide 25, Anion Gap 13.3, BUN 19 H, Creatinine 1.08, Estimated Creat Clear 92, Estimated GFR 66, Est GFR ( Amer) 80, Glucose 113 H, Calcium 8.5 I & O for Last 24 hours: Intake & Output 0609/21/18 09/22/18 09/23/18 23:59 23:59 23:59 23:59 Intake Total 2709 / 2709 Output Total 50 / 50 500 / 500 Balance -50 / -50 9 / 2209 Weight 113.965 kg 113.993 kg Narrative: Alert and oriented x2 with some confusion. Rate and rhythm regular. 3/6 holosystolic murmur, radiates to bilateral carotids. 1+ BLE edema. Left hip with postsurgical bandage in place, clean dry and intact, no warmth or erythema. Bilateral lower extremity pulses 1+ and neurovascularly intact. Lung sounds clear and equal. Abdomen soft and nontender. ENT exam unremarkable. Assessment and Plan (1) Closed left hip fracture Current visit: Yes Status: Acute Qualifiers: Encounter type: initial encounter Qualified Code(s): S72.002A - Fracture of unspecified part of neck of left femur, initial encounter for closed fracture Category: Medical Code(s): S72.002A - Fracture of unspecified part of neck of left femur, initial encounter for closed fracture (2) Dementia Current visit: Yes Status: Chronic Category: Medical Code(s): F03.90 - Unspecified dementia without behavioral disturbance (3) Newly recognized murmur Current visit: Yes Status: Acute Category: Medical Code(s): R01.1 - Cardiac murmur, unspecified (4) Aortic stenosis Current visit: Yes Status: Acute Category: Medical Code(s): I35.0 - Nonrheumatic aortic (valve) stenosis - Assessment and plan all Dx Assessment and Plan for all problems:: Status post surgical fixation yesterday. Physical therapy working with patient today. Placement recommendations pending physical therapy's assessment. Continues to require inpatient management. Will discontinue Manzanares today
--- NOTE | 2018-09-23 09:08 | HMH.OTEV ---
OT Inpatient Evaluation Rehab OT IP Evaluation Start: 09/22/18 16:03 Freq: ONCE Status: Complete Protocol: Document 09/23/18 09:02 TFRY (Rec: 09/23/18 09:07 TFRY [id number]) Rehab OT IP Assessment Subjective History This a 77 year old male admitted to the hospital after falling at home and fracturing his left hip. Patient lives at home with his . Objective Patient Orientation Person,Place,Name,Birthday, Month Upper Extremity Gross ROM WFL Bed Mobility bed mobility - supine/sit Assist Level Maximum x 2 (75% assist) Transfer Training Sit/Stand/Step Transfer Chair Transfer Ability Maximum x 2 (75% assist) Chair Transfer Technique Stand Step Pivot Chair Transfer Assistive Devices Standard Walker Lower Body Dressing Ability Unable/Dependant decrease in endurance No Rehab OT IP prob,goals,plan Problems Date of Evaluation: 09/23/18 OT IP Problems Bed Mobility,Transfers,Self care,Safety Rehab Potential Rehab Potential Fair Plan OT intervention Plan Bed Mobility,Transfers,Self care,Safety OT Plan Frequency Daily Duration Goals Met Discharge Goals Bed Mobility Ability Assistance x1 Sit to Stand Chair Transfer Ability Minimal x 1 (25% assist) Chair Transfer Ability Minimal x 1 (25% assist) Chair Transfer Technique Sit to/from Ambulatory Lower Body Dressing Ability Assistance X1 Performing Toilet Hygiene Ability Standby Assistance Overall Commode/Toilet Transfer Ability Assistance x1 Commode/Toilet Transfer Technique Sit to/from Ambulatory Commode/Toilet Transfer Assistive 3-in-1 Commode Devices Discharge Plan OT Discharge Plan Recommend rehab at inpatient setting Eval Complexity Eval Charge Codes 78198 - Low Complexity G Codes G -code Required Yes OT Current Status Self Care OT Current Status Modifier CM-At least 80% but less than 100% impaired, limited or restricted OT Goal Status Self Care OT Goal Status Modifier CJ-At least 20% but less than 40% impaired, limited or restricted PHYSICIAN CERTIFICATION: I certify the specified therapy services for Damien Adams are required, authorized, and reviewed every 30 days.
--- NOTE | 2018-09-23 12:11 | HMH.PTEV ---
Physical Therapy Evaluation Rehab PT IP Evaluation Start: 09/22/18 16:03 Freq: ONCE Status: Active Protocol: Document 09/23/18 11:05 PHORNE (Rec: 09/23/18 12:11 PHORNE [id number]) Subjective/History History History 77 yowm adm to [facility] after fall at home with left hip FX, now S/P left NEELAM. Pt is independently mobile at baseline, but also suffers from dementia. Subjective Subjective Pt c/o pain in left LE, worse at surgical site. Rehab PT IP Eval Objective Appearance Patient Behavior Appropriate Patient Orientation Person,Place,Month Difficulty following instructions mild Speech Pattern Clear Ambulation Patient Able to Ambulate No Balance Ability to Arise Able, uses arms to help Sitting Balance Steady, safe Standing Balance Unsteady Dynamic Sitting Balance Ability Good Dynamic Standing Balance Ability Poor Transfers Bed Transfer Ability Maximum x 2 (75% assist) Chair Transfer Ability Maximum x 2 (75% assist) Sit to Stand Bed Transfer Ability Maximum x 2 (75% assist) Sit to Stand Chair Transfer Ability Maximum x 2 (75% assist) ROM All Extremities PT ROM Status WFL Abnormal ROM Comment except left hip NT MMT All Extremities PT MMT WFL Abnormal MMT Grade except left LE grossly 2/5 throughout due to pain. Rehab PT IP prob,goals,plan Problems Date of Evaluation: 09/23/18 PT IP Problems Bed Mobility,Transfers,Gait Rehab Potential Rehab Potential Fair Equipment Needs Assistive Devices Rolling / Wheeled Walker Plan PT Intervention Plan Bed Mobility,Transfers,Gait, Therapeutic Exercise PT Plan Frequency BID Duration LOS Discharge Goals Bed Transfer Ability Maximum x 1 (75% assist) Sit to Stand Chair Transfer Ability Maximum x 1 (75% assist) Ambulation Assistive Device Rolling Walker Ambulation Distance (feet) 3 Discharge Plan PT Discharge Plan Pt will require rehab placement prior to retun home with family assist. Likely to have difficulty understanding posterior hip precautions due to dementia. G -code Required Yes Eval Complexity Eval Charge Codes [id number] - High Complexity G Codes PT Current Status
--- NOTE | 2018-09-23 12:51 | HMH.ORTHPN ---
Subjective Date: 09/23/18 Time: 12:00 Principal diagnosis: L femoral neck fracture s/p hemiarthroplasty Interval history: No acute events reported overnight. The patient is stable, afebrile and reports little pain. He has been intermittently confused, more so than usual, and has reported seeing soldiers in his room. He has not had narcotic pain medication all day per his nurse. PT cathyal performed his morning, and there was difficultly mobilizing the patient; he resisted assistance, but once on his feet he did well. PN: Obj Ex Vital signs: Temp Pulse Resp BP Pulse Ox 98.9 F 84 20 145/68 H 94 L 09/23/18 12:00 09/23/18 12:00 09/23/18 12:00 09/23/18 12:00 09/23/18 12:00 - Constitutional no acute distress, obese, cooperative - Routine HEENT Exam Head: Present: normocephalic Eye: Present: EOMI ENT: Present: mucous membranes moist - Routine Respiratory Exam Present: CTA bilaterally. Absent: accessory muscle use, rhonchi, wheezes - Routine Cardiovascular Exam Present: murmur - Routine Abdominal Exam Present: soft. Absent: tenderness - Routine Extremities Exam Comments: L hip dressing c/d/i, no strikethrough no periwound erythema/ecchymosis or drainage +DF/PF/EHL LLE SILT distally LLE L calf soft, non-tender; negative homans negative logroll (non-tender) no complaints of back pain today palpable pedal pulses LLE, foot warm/well-perfused - Routine Back/Spine/Pelvis Exam Back/Spine: Absent: vertebral tenderness - Routine Skin Exam Absent: erythema, ecchymosis - Routine Neurological Exam Present: alert, moving all extremities, normal tone. Absent: sensory deficit, motor deficit, altered mental status - Urinary Catheter Management Manzanares Cath placed during this visit: yes Urethral indwelling: No Insertion date: 09/22/18 Insertion time: 11:45 Progress Note: A&P (1) Closed left hip fracture Status: Acute Current Visit: Yes (2) Dementia Status: Chronic Current Visit: Yes (3) Newly recognized murmur Status: Acute Current Visit: Yes (4) Aortic stenosis Status: Acute Current Visit: Yes Assessment and Plan for All Diagnoses:: 77yo M POD 1 s/p L hip hemiarthroplasty for femoral neck fracture -- continue WBAT LLE, posterior hip precautions, abduction pillow while in bed -- will change dressing POD 2-3; reinforce mild drainage, notify MD if severe persistent drainage -- ice pack to L hip PRN -- LOU hose BLE PRN for lower extremity edema -- continue PT/OT -- DVT prophy: lovenox + SCDs -- encourage incentive spirometery -- case management working on placement; recommend SNF
--- NOTE | 2018-09-23 13:37 | PC.NURSE ---
report given to sherita
--- NOTE | 2018-09-23 15:16 | SW/DCPLANNER ---
SPOKE WITH TODAY REGARDING WHERE SHE WISHES FOR HER TO DO HIS SKILLED REHAB, PATIENT HAS DEMENTIA SO HAS ASKED WE SPEAK WITH HER.. SHE ORIGINALLY WANTED INFORMATION SENT TO [facility] AND I DID MAKE CONTACT AND SPOKE WITH C D REACTOR OPERATOR STATING IT WOULD BE NEXT WEEK BEFORE THEY WOULD EVEN LOOK AT IT AND NO PROMISES THEY WILL TAKE HIM...SHE SAID [facility]..I HAVE SENT IT TO [facility] TO SEE IF THEY HAVE ANY BED AVAILABILITY AND HAVE NOT HEARD BACK YET... [facility]
--- NOTE | 2018-09-23 16:35 | PC.NURSE ---
patient sitting up in bed awake with at bedside. trash and ice done.
--- NOTE | 2018-09-23 17:02 | SW/DCPLANNER ---
RECEIVED A CALL FROM CORNELIO AT [facility] AND PATIENT HAS BEEN ACCEPTED.. WAS OK WITH HIM STAYING HERE IN [employer] SINCE THE MD DID NOT HAVE ANY SKILLED BEDS AT THIS TIME...I SENT A MESSAGE TO DR DIAS IN CASE HE WAS READY TO SEND HIM IN THE AM..
--- NOTE | 2018-09-23 17:23 | PC.NURSE ---
PATIENT A&O X2, LUNGS CLEAR, PULSES EQUAL. PATIENT UP TO CHAIR, SLEPT AT INTERVALS. DURING LUNCH RN ENCOURAGED PATIENT TO EAT. PATIENT WOULD HAM MARKER SPOON AND SCOOP IN AN EMPTY AREA, RN ASSISTED PATIENT IN EATING LUNCH. PATIENT DEMONSTRATED EPISODES OF CONFUSION. ASKED RN TO HAVE MD DIAGNOSIS PATIENT WITH DEMENTIA. RN SPOKE WITH DR. DIAS, RELAYED MESSAGE FROM SPOUSE. MD STATED, WE CAN ASSESS HIM IN AN OUTPATIENT SETTING. RN RELAYED TO SPOUSE, SPOUSE VERBALIZED AN UNDERSTANDING. PATIENT HAD A SLIGHT FEVER OF 100, RN ADMINISTERED TYLENOL. OSCAR [place] INFORMED RN THAT PATIENT HAS A BED AT [facility] FOR TOMORROW IF HEALTH STATUS REMAINS OKAY. OSCAR ALSO SPOKE WITH SPOUSE. SPOUSE VERBALIZED RN RE ASSESSED TEMP, CONTINUED AT 100.1. BLANKETS REMOVED, WILL CONTINUE TO MONITOR. NO OTHER CONCERNS OR ISSUES AT THIS TIME.
--- NOTE | 2018-09-23 18:24 | PC.NURSE ---
Addendum entered by Ml Jean Baptiste RN 09/23/18 18:32: MD AWARE Original Note: RN ASSISTED IN BRIEF CHANGE, SCROTUM IS ENLARGED AND RED. NO OTHER NEEDS OR CONCERNS AT THIS TIME.
--- NOTE | 2018-09-24 00:13 | HMH.DCSUM ---
General - General Admission date:: 09/21/18 <Brayden Shultz - 09/25/18 06:36> 09/21/18 <Tima Alfonso - 09/24/18 00:21> Discharge date: 09/24/18 <Tima Alfonso - 09/24/18 00:21> HPI HPI: 77 year old male with mild dementia presented to ED with left hip pain following a fall at home. Patient denies any dizziness, shortness of breath or CP prior to fall. Reports he lost his balance, which happens all the time. He denies any cardiac or pulmonary history. No exertional symptoms, although states he doesn't do much. In the ED, he was found to have left hip fracture. He was admitted for surgery consult and repair. <Tima Alfonso - 09/24/18 00:21> Hospital Course Hospital Course: Rehab potential: Fair Prognosis: Fair Mental status: Below average <Brayden Shultz - 09/25/18 06:36> Patient admitted due to left hip fracture. Orthopedics consulted. Hemiarthroplasty of left hip fracture performed 09/22/2018. Patient tolerated procedure well. Physical therapy was consulted during admission with recommendation of continued physical therapy at [facility]. Pain was managed with minimal doses of oral opiates. Patient has difficulty standing up on his own however ambulates fairly well once standing. Tolerated regular diet during admission. Chronic conditions managed. Did experience some mild confusion suspected related to anesthesia, pain, pain medication however was redirectable. DVT prophylaxis during admission with Lovenox and SCDs. Remained hemodynamically stable. Wound remained clean dry and intact. Discharged with continued DVT prophylaxis of 325 mg aspirin daily. Patient remained afebrile, without shortness of breath or chest pain, denied nausea, vomiting, diarrhea. Discharged in stable condition to [facility] for continued physical therapy <Tima Alfonso - 09/24/18 00:21> Objective Vital signs: Temp Pulse Resp BP Pulse Ox 100.2 F H 82 20 122/58 L 98 09/24/18 04:00 09/24/18 04:00 09/24/18 04:00 09/24/18 04:00 09/24/18 04:00 <Brayden Shultz - 09/25/18 06:36> Temp Pulse Resp BP Pulse Ox 99.3 F 84 19 116/57 L 92 L 09/23/18 19:50 09/23/18 19:50 09/23/18 19:50 09/23/18 19:50 09/23/18 19:50 <Tima Alfonso - 09/24/18 00:21> Results Labs on day of discharge: Labs from last 24 hours 09/24/18 09/24/18 06:45 06:45 WBC 9.1 RBC 3.83 L Hgb 10.6 L Hct 33.2 L MCV 86.7 MCH 27.6 MCHC 31.9 RDW 14.0 Plt Count 195 MPV 7.4 Neut % (Auto) 73.5 Lymph % (Auto) 14.7 [place] % (Auto) 9.6 H Eos % (Auto) 1.9 Baso % (Auto) 0.3 Neut # (Auto) 6.7 Lymph # (Auto) 1.3 [place] # (Auto) 0.9 Eos # (Auto) 0.2 Baso # (Auto) 0.0 Sodium 139 Potassium 4.1 Chloride 104 Carbon Dioxide 26 Anion Gap 13.1 BUN 21 H Creatinine 1.18 Estimated Creat Clear 84 Estimated GFR 60 Est GFR ( Amer) 72 Glucose 105 Calcium 8.2 L <CarringtonBrayden - 09/25/18 06:36> Labs from last 24 hours 09/23/18 09/23/18 06:04 06:04 WBC 9.0 RBC 4.53 L Hgb 12.6 L Hct 38.9 L MCV 85.8 MCH 27.8 MCHC 32.4 RDW 14.1 Plt Count 206 MPV 7.6 Neut % (Auto) 74.7 Lymph % (Auto) 13.2 [place] % (Auto) 10.7 H Eos % (Auto) 1.2 Baso % (Auto) 0.2 Neut # (Auto) 6.7 Lymph # (Auto) 1.2 [place] # (Auto) 1.0 Eos # (Auto) 0.1 Baso # (Auto) 0.0 Sodium 142 Potassium 4.3 Chloride 108 H Carbon Dioxide 25 Anion Gap 13.3 BUN 19 H Creatinine 1.08 Estimated Creat Clear 92 Estimated GFR 66 Est GFR ( Amer) 80 Glucose 113 H Calcium 8.5 <Tima Alfonso - 09/24/18 00:21> DS: Diagnosis - Discharge Diagnosis (1) Closed left hip fracture Status: Acute (2) Dementia Status: Chronic (3) Newly recognized murmur Status: Acute (4) Aortic stenosis Status: Acute <Tima Alfonso - 09/24/18 00:13> (1) Closed left hip fracture Status: Acute
--- NOTE | 2018-09-24 00:17 | P.DS_ITS ---
General - General Admission date:: 09/21/18 <Brayden Shultz - 09/25/18 06:36> 09/21/18 <Tima Alfonso - 09/24/18 00:21> Discharge date: 09/24/18 <Tima Alfonso - 09/24/18 00:21> HPI HPI: 77 year old male with mild dementia presented to ED with left hip pain following a fall at home. Patient denies any dizziness, shortness of breath or CP prior to fall. Reports he lost his balance, which happens all the time. He denies any cardiac or pulmonary history. No exertional symptoms, although states he doesn't do much. In the ED, he was found to have left hip fracture. He was admitted for surgery consult and repair. <Tima Alfonso - 09/24/18 00:21> Hospital Course Hospital Course: Rehab potential: Fair Prognosis: Fair Mental status: Below average <Brayden Shultz - 09/25/18 06:36> Patient admitted due to left hip fracture. Orthopedics consulted. Hemiarthroplasty of left hip fracture performed 09/22/2018. Patient tolerated procedure well. Physical therapy was consulted during admission with recommendation of continued physical therapy at [facility]. Pain was managed with minimal doses of oral opiates. Patient has difficulty standing up on his own however ambulates fairly well once standing. Tolerated regular diet during admission. Chronic conditions managed. Did experience some mild confusion suspected related to anesthesia, pain, pain medication however was redirectable. DVT prophylaxis during admission with Lovenox and SCDs. Remained hemodynamically stable. Wound remained clean dry and intact. Discharged with continued DVT prophylaxis of 325 mg aspirin daily. Patient remained afebrile, without shortness of breath or chest pain, denied nausea, vomiting, diarrhea. Discharged in stable condition to [facility] for continued physical therapy <Tima Alfonso - 09/24/18 00:21> Objective Vital signs: Temp Pulse Resp BP Pulse Ox 100.2 F H 82 20 122/58 L 98 09/24/18 04:00 09/24/18 04:00 09/24/18 04:00 09/24/18 04:00 09/24/18 04:00 <Brayden Shultz - 09/25/18 06:36> Temp Pulse Resp BP Pulse Ox 99.3 F 84 19 116/57 L 92 L 09/23/18 19:50 09/23/18 19:50 09/23/18 19:50 09/23/18 19:50 09/23/18 19:50 <Tima Alfonso - 09/24/18 00:21> Results Labs on day of discharge: Labs from last 24 hours 09/24/18 09/24/18 06:45 06:45 WBC 9.1 RBC 3.83 L Hgb 10.6 L Hct 33.2 L MCV 86.7 MCH 27.6 MCHC 31.9 RDW 14.0 Plt Count 195 MPV 7.4 Neut % (Auto) 73.5 Lymph % (Auto) 14.7 [place] % (Auto) 9.6 H Eos % (Auto) 1.9 Baso % (Auto) 0.3 Neut # (Auto) 6.7 Lymph # (Auto) 1.3 [place] # (Auto) 0.9 Eos # (Auto) 0.2 Baso # (Auto) 0.0 Sodium 139 Potassium 4.1 Chloride 104 Carbon Dioxide 26 Anion Gap 13.1 BUN 21 H Creatinine 1.18 Estimated Creat Clear 84 Estimated GFR 60 Est GFR ( Amer) 72 Glucose 105 Calcium 8.2 L <Brayden Shultz - 09/25/18 06:36> Labs from last 24 hours 09/23/18 09/23/18 06:04 0
[2018-09-24 04:00] VITALS: BP 122/58; PULSE 82; RESP 20; TEMP 37.9; O2SAT 98
--- NOTE | 2018-09-24 04:22 | PC.NURSE ---
Pt. has been confused this shift. Lung sounds clear and bowel sounds active. Pt. has sleep throughout the night. Dressing to left hip remains clean, dry and intact. Pt. has not complained of any pain. Will continue to monitor.
[2018-09-24 05:08] VITALS: BMI 34.0
[2018-09-24 07:11] LABS: Basophils % 0.3 % (0.1-2.0); Eosinophils # 0.2 K/mm3 (0.0-0.4); Eosinophils % 1.9 % (0.1-12.0); Hematocrit 33.2 % (42.0-52.0); Hemoglobin 10.6 g/dL (14.1-18.0); Lymphocytes # 1.3 K/mm3 (0.7-4.5); Lymphocytes % 14.7 % (10-50); Mean Corpuscular HGB Conc 31.9 g/dL (31.8-35.4); Mean Corpuscular Hemoglobin 27.6 pg (27.0-31.2); Mean Corpuscular Volume 86.7 fl (80-94); Mean Platelet Volume 7.4 fl (7.4-10.4); Monocytes # 0.9 K/mm3 (0.1-1.0); Monocytes % 9.6 % (1.7-9.3); Neutrophils # 6.7 K/mm3 (1.8-7.8); Neutrophils % 73.5 % (37.0-80.0); Platelet Count 195 K/mm3 (142-424); Red Blood Count 3.83 M/mm3 (4.60-6.20); White Blood Count 9.1 K/mm3 (4.8-10.8)
[2018-09-24 07:23] LABS: Anion Gap 13.1 mEq/L (5-15); Blood Urea Nitrogen 21 mg/dL (7-18); Calcium 8.2 mg/dL (8.5-10.1); Carbon Dioxide 26 mmol/L (21.0-32.0); Chloride 104 mmol/L (98-107); Creatinine Clearance Estimated 84 mL/min (50-200); Creatinine,Serum 1.18 mg/dL (0.70-1.30); Estimated Glomerular Filt Rate 60 ml/min (>60); GFR (African American) 72 ML/MIN (>60); Glucose 105 mg/dL (74-106); Potassium 4.1 mmoL/L (3.5-5.1); Sodium 139 mmol/L (136-145)
--- NOTE | 2018-09-24 07:33 | PC.NURSE ---
REPORT GIVEN TO Elie MCGINNIS
--- NOTE | 2018-09-24 07:51 | P.PN_ITS ---
Internal Medicine - PN: Subj *Date: 09/24/18 *Time: 07:50 Interval history: Patient denies complaints this morning. He admits he is not sure how much he participated with physical therapy yesterday. Review of PT note so patient needs quite a bit of assistance including possibly Sri lift for transfers out of bed. Exam Vital signs and Labs for Last 24 Hours: Temp Pulse Resp BP Pulse Ox 100.2 F H 82 20 122/58 L 98 09/24/18 04:00 09/24/18 04:00 09/24/18 04:00 09/24/18 04:00 09/24/18 04:00 Laboratory Results - last 24 hr 09/24/18 06:45: WBC 9.1, RBC 3.83 L, Hgb 10.6 L, Hct 33.2 L, MCV 86.7, MCH 27.6, MCHC 31.9, RDW 14.0, Plt Count 195, MPV 7.4, Neut % (Auto) 73.5, Lymph % (Auto) 14.7, [place] % (Auto) 9.6 H, Eos % (Auto) 1.9, Baso % (Auto) 0.3, Neut # (Auto) 6.7, Lymph # (Auto) 1.3, [place] # (Auto) 0.9, Eos # (Auto) 0.2, Baso # (Auto) 0.0 09/24/18 06:45: Sodium 139, Potassium 4.1, Chloride 104, Carbon Dioxide 26, Anion Gap 13.1, BUN 21 H, Creatinine 1.18, Estimated Creat Clear 84, Estimated GFR 60, Est GFR ( Amer) 72, Glucose 105, Calcium 8.2 L I & O for Last 24 hours: Intake & Output 09/21/18 09/22/18 09/23/18 09/24/18 11:59 11:59 11:59 11:59 Intake Total 249 / 249 2700 / 2700 Output Total 350 / 350 200 / 200 700 / 700 Balance -101 / -101 2500 / 2500 -700 / -700 Weight 251 lb 5 oz 250 lb 8 oz Narrative: Patient awakens easily this morning. He is able to answer questions. Lungs are clear to auscultation. Heart has a regular rate and rhythm. Assessment and Plan (1) Closed left hip fracture Current visit: Yes Status: Acute Qualifiers: Encounter type: initial encounter Qualified Code(s): S72.002A - Fracture of unspecified part of neck of left femur, initial encounter for closed fracture Category: Medical Code(s): S72.002A - Fracture of unspecified part of neck of left femur, initial encounter for closed fracture (2) Dementia Current visit: Yes Status: Chronic Category: Medical Code(s): F03.90 - Unspecified dementia without behavioral disturbance (3) Newly recognized murmur Current visit: Yes Status: Acute Category: Medical Code(s): R01.1 - Cardi ac murmur, unspecified (4) Aortic stenosis Current visit: Yes Status: Acute Category: Medical Code(s): I35.0 - Nonrheumatic aortic (valve) stenosis - Assessment and plan all Dx Assessment and Plan for all problems:: Patient will be [facility] to continue [facility].
[2018-09-24 07:56] VITALS: O2SAT 92
[2018-09-24 08:00] VITALS: BP 142/70; PULSE 72; RESP 17; TEMP 36.9; O2SAT 95
--- NOTE | 2018-09-24 08:21 | PC.NURSE ---
Notified Dr. English of pts DC, states she will be in to check pt.
--- NOTE | 2018-09-24 09:49 | HMH.ORTHPN ---
Subjective Date: 09/24/18 Time: 09:00 Principal diagnosis: L femoral neck fracture s/p hemiarthroplasty Interval history: The patient is being discharged to [facility] this morning for continued rehabilitation. He remains confused, which his says has been ongoing for around 3 years; has had periods during this admission c/w delirium. He does not complain of pain in the hip at this time. PN: Obj Ex Vital signs: Temp Pulse Resp BP Pulse Ox 98.5 F 72 17 142/70 H 95 09/24/18 08:00 09/24/18 08:00 09/24/18 08:00 09/24/18 08:00 09/24/18 08:00 - Constitutional no acute distress, obese, cooperative - Routine HEENT Exam Head: Present: normocephalic Eye: Present: EOMI ENT: Present: mucous membranes moist - Routine Respiratory Exam Present: CTA bilaterally. Absent: accessory muscle use, rhonchi, wheezes - Routine Cardiovascular Exam Present: murmur - Routine Abdominal Exam Present: soft. Absent: tenderness - Routine Extremities Exam Comments: L hip dressing w/o strikethrough; removed, incision c/d/i w/o active drainage, new dressing applied no periwound ecchymosis, erythema or tenderness +DF/PF/EHL LLE SILT distally LLE L calf soft, non-tender; negative Homans palpable pedal pulses LLE, foot warm/well-perfused - Routine Skin Exam Present: dry. Absent: erythema, ecchymosis - Routine Neurological Exam Present: alert, altered mental status, moving all extremities, normal tone. Absent: sensory deficit, motor deficit - Urinary Catheter Management Manzanares Cath placed during this visit: yes Urethral indwelling: No Insertion date: 09/22/18 Insertion time: 11:45 Progress Note: A&P (1) Closed left hip fracture Status: Acute Current Visit: Yes (2) Dementia Status: Chronic Current Visit: Yes (3) Newly recognized murmur Status: Acute Current Visit: Yes (4) Aortic stenosis Status: Acute Current Visit: Yes (5) Anemia due to blood loss, acute Status: Acute Current Visit: Yes Assessment and Plan for All Diagnoses:: 77yo M POD #2 s/p L hip hemiarthroplasty for femoral neck fracture -- continue PT/OT at [place]; WBAT LLE, posterior hip precautions, abduction pillow in bed -- DVT prophy per primary -- ice pack to L hip PRN -- f/u with me in 10-14 days; office will call Wednesday with date/time
--- NOTE | 2018-09-24 09:53 | P.PN_ITS ---
Subjective Date: 09/24/18 Time: 09:00 Principal diagnosis: L femoral neck fracture s/p hemiarthroplasty Interval history: The patient is being discharged to long-term this morning for continued rehabilitation. He remains confused, which his says has been ongoing for around 3 years; has had periods during this admission c/w delirium. He does not complain of pain in the hip at this time. PN: Obj Ex Vital signs: Temp Pulse Resp BP Pulse Ox 98.5 F 72 17 142/70 H 95 09/24/18 08:00 09/24/18 08:00 09/24/18 08:00 09/24/18 08:00 09/24/18 08:00 - Constitutional no acute distress, obese, cooperative - Routine HEENT Exam Head: Present: normocephalic Eye: Present: EOMI ENT: Present: mucous membranes moist - Routine Respiratory Exam Present: CTA bilaterally. Absent: accessory muscle use, rhonchi, wheezes - Routine Cardiovascular Exam Present: murmur - Routine Abdominal Exam Present: soft. Absent: tenderness - Routine Extremities Exam Comments: L hip dressing w/o strikethrough; removed, incision c/d/i w/o active drainage, new dressing applied no periwound ecchymosis, erythema or tenderness +DF/PF/EHL LLE SILT distally LLE L calf soft, non-tender; negative Homans palpable pedal pulses LLE, foot warm/well-perfused - Routine Skin Exam Present: dry. Absent: erythema, ecchymosis - Routine Neurological Exam Present: alert, altered mental status, moving all extremities, normal tone. Absent: sensory deficit, motor deficit - Urinary Catheter Management Manzanares Cath placed during this visit: yes Urethral indwelling: No Insertion date: 09/22/18 Insertion time: 11:45 Progress Note: A&P (1) Closed left hip fracture Status: Acute Current Visit: Yes (2) Dementia Status: Chronic Current Visit: Yes (3) Newly recognized murmur Status: Acute Current Visit: Yes (4) Aortic stenosis Status: Acute Current Visit: Yes (5) Anemia due to blood loss, acute Status: Acute Current Visit: Yes Assessment and Plan for All Diagnoses:: 77yo M POD #2 s/p L hip hemiarthroplasty for femoral neck fracture -- continue PT/OT at [place]; WBAT LLE, posterior hip precautions, abduction pillow in bed -- DVT prophy per primary -- ice pack to L hip PRN -- f/u with me in 10-14 days; office will call Wednesday with date/time
--- NOTE | 2018-09-24 10:00 | PC.NURSE ---
Report called to Renetta Renteria at [facility].
--- NOTE | 2018-09-24 10:01 | PC.NURSE ---
Called [facility]'s ambulance regarding need for transport.
== END 2018-09-24 10:40 | DRG 470 ==
LOC: ER 18:38 → 2ND 18:54
PROVIDERS: Orthopaedic Surgery; Admitting Provider Emergency Medicine; Emergency Provider Emergency Medicine; PCP Internal Medicine; Visit Provider Internal Medicine Adolescent Medicine
PROC: 0SRB049 Replacement of Left Hip Joint with Ceramic on Polyethylene Synthetic Substitute, Cemented, Open Approach (ICD-10-PCS; CPT 27130; principal; 2018-09-22 11:00)
DX: S72.092A Other fracture of head and neck of left femur, initial encounter for closed fracture (principal); W18.39XA Other fall on same level, initial encounter; Z91.81 History of falling; Y92.018 Other place in single-family (private) house as the place of occurrence of the external cause; I35.0 Nonrheumatic aortic (valve) stenosis; F03.90 Unspecified dementia, unspecified severity, without behavioral disturbance, psychotic disturbance, mood disturbance, and anxiety
CPT/HCPCS: 27130; 36415; 71045; 72070; 72100; 72170; 73502; 73700; 80048; 80053; 81001; 85025; 85610; 85730; 93005; 93306; 96374; 96375; 97110; 97163; 97165; 97535; 99284; C1713; C1776; J2405

== ENCOUNTER → 2018-10-07 13:52 | Outpatient (CLI) | payer MEDICARE, OTHER, SELFPAY ==
--- NOTE | 2018-10-07 14:02 | XR_ITS ---
XR hip LT 2-3V w/pelvis Ordering Physician: Lucero English MD Patient Age: 77 years: Male HISTORY: ITS.REASON: lt hip fx post op DOS 09/22/18 TECHNIQUE: AP & crosstable lateral views left hip with AP pelvis COMPARISON : Previous left hip 09/21/2018 FINDINGS Left femoral head prosthesis now in place . This was placed to treat & address the transcervical left femoral neck fracture seen on previous 09/21/2018 left hip study. The new left femoral bipolar prosthesis appears to be in good position and articulates satisfactorily with the saxman acetabulum. Medullary stem is in good position, & central within the proximal femur. Surrounding bone cement proximal femur. Skin екатерина laterally overlying the left tib-fib reflect the recent surgery. The remainder osseous pelvis is intact. Mild hypertrophic lipping at the superior margin of both right & left acetabulum reflecting mild degenerative changes at hips. At the right hip prior ORIF with gamma now & metallic plate proximal right femur. IMPRESSION: ... Left femoral head prosthesis now in place. Satisfactory position of the bipolar prosthesis . Recent surgical changes evident
== END ==
PROVIDERS: PCP Internal Medicine Adolescent Medicine; Visit Provider Orthopaedic Surgery
DX: S72.002A Fracture of unspecified part of neck of left femur, initial encounter for closed fracture (principal)
CPT/HCPCS: 73502

== ENCOUNTER → 2018-11-07 13:16 | Outpatient (CLI) | payer MEDICARE, OTHER, SELFPAY ==
--- NOTE | 2018-11-07 13:23 | XR_ITS ---
XR hip LT 2-3V w/pelvis HISTORY: ITS.REASON: hip fracture ORDERING PHYSICIAN: Lucero English MD PATIENT AGE: 77 years COMPARISON: 10/07/2018 FINDINGS: The appearance of the left hip prosthesis remains stable. The appearance of the visualized orthopedic hardware at the proximal right femur remains stable. There are no new fractures. Soft tissues are stable. IMPRESSION: Stable exam. No acute process. Interval removal of the skin екатерина.
== END ==
PROVIDERS: PCP Internal Medicine; Visit Provider Orthopaedic Surgery
DX: Z96.642 Presence of left artificial hip joint (principal)
CPT/HCPCS: 73502

== ENCOUNTER → 2019-03-06 12:24 | Outpatient (CLI) | payer MEDICARE, OTHER, SELFPAY ==
--- NOTE | 2019-03-06 12:31 | XR_ITS ---
PROCEDURE: XR HIP LT 2-3V W/PELVIS CLINICAL INDICATION: hip fx Follow-up left hip fracture COMPARISON: [id number] HIP RT 2-3V W/PELVIS IF PERFOR from 10/01/2016 from 10/07/2018 FINDINGS: Status post left hip hemiarthroplasty with good alignment. There is faint increased density superior to the greater trochanter and distal to the medial aspect of acetabular component of the prosthesis suggesting heterotopic ossification. There is an old right hip fracture with gamma nail present. IMPRESSION: Good alignment status post left hip hemiarthroplasty with suggestion of developing heterotopic ossification Dictated by: Julio Donnelly MD 03/06/2019 16:34 Electronically signed by Julio Donnelly MD in [place] 03/06/2019 16:34
== END ==
PROVIDERS: PCP Internal Medicine; Visit Provider Orthopaedic Surgery
DX: Z96.642 Presence of left artificial hip joint (principal); M25.552 Pain in left hip
CPT/HCPCS: 73502

== ENCOUNTER 2019-09-10 04:54 | Observation (INO) | payer MEDICARE, SELFPAY ==
[2019-09-10] VITALS (9 sets, daily range): BP systolic 121–151; BP diastolic 64–82; PULSE 61–87; RESP 16–20; TEMP 36.8–39; O2SAT 97–100; BMI 39.1; BMI 36.4
--- NOTE | 2019-09-10 | ECG_ITS ---
APPROVED REPORT Exam: Resting ECG HR:93 bpm ECG Measurements Heart Rate 93 AXES CA 234 P 51 QRSd 146 QRS -67 QT 378 T 58 QTc 469 <Conclusion> Sinus rhythm with 1st degree AV block Right bundle branch block Left anterior fascicular block Bifascicular block Minimal voltage criteria for LVH, may be normal variant Abnormal ECG Electronically signed by : Brayden Luna, 09/12/2019 13:55:00
--- NOTE | 2019-09-10 04:59 | CT_ITS ---
PROCEDURE: CT HEAD/BRAIN WO CON CLINICAL INDICATION: ALTERED MENTAL STATUS Altered mental status, altered level of consciousness, confusion, disorientation COMPARISON: [facility] CT HEAD W/O CONTRAST from 02/20/2016 TECHNIQUE: Axial images obtained. All CT scans at the facility use one or more dose reduction, viz: automated exposure control, ma/kV adjustment per patient size (including targeted exams where dose is matched to indication, i.e. head), or iterative reconstruction technique. FINDINGS: There is generalized motion artifact. The study is repeated twice in then, helical imaging was performed. There is persistent motion artifact on the helical imaging. No gross intracranial acute pathology is evident. No midline shift or mass effect or large area of hemorrhage is evident. There is generalized atrophy with periventricular ischemic gliotic change. No sinus air-fluid level. IMPRESSION: No acute intracranial finding Dictated by: Julio Donnelly MD 09/10/2019 07:49 Electronically signed by Julio Donnelly MD in [place] 09/10/2019 07:49
[2019-09-10 05:06] LABS: Microscopic, Urine URINE MICROSCOPIC (MICROSCOPIC)
[2019-09-10 05:09] LABS: Basophils # 0.3 K/mm3 (0-0.2); Basophils % 1.6 % (0.1-2.0); Eosinophils # 0.1 K/mm3 (0.0-0.4); Eosinophils % 0.4 % (0.1-12.0); Hemoglobin 15.6 g/dL (14.1-18.0); Lymphocytes # 0.9 K/mm3 (0.7-4.5); Lymphocytes % 5.4 % (10-50); Mean Corpuscular HGB Conc 33.1 g/dL (31.8-35.4); Mean Corpuscular Volume 90.6 fl (80-94); Mean Platelet Volume 7.4 fl (7.4-10.4); Monocytes # 0.9 K/mm3 (0.1-1.0); Monocytes % 5.7 % (1.7-9.3); Neutrophils # 13.6 K/mm3 (1.8-7.8); Neutrophils % 86.8 % (37.0-80.0); Platelet Count 223 K/mm3 (142-424); Red Blood Count 5.19 M/mm3 (4.60-6.20); Red Cell Distribution Width 15.1 % (11.5-17.5); White Blood Count 15.7 K/mm3 (4.8-10.8)
[2019-09-10 05:10] LABS: Appearance,Urine CLEAR (Clear); Bilirubin,Urine Negative (Negative); Blood, Urine TRACE-I (Negative); Color,Urine YELLOW (Yellow); Glucose,Urine (UA) Negative (Negative); Ketones,Urine Negative (Negative); Leukocyte Esterase,Urine Negative (Negative); Nitrate,Urine Negative (Negative); Protein,Urine Negative (Negative)
--- NOTE | 2019-09-10 05:12 | PC.NURSE ---
PT TO CT AT THIS TIME VIA STRETCHER
[2019-09-10 05:17] LABS: Amorphous Sediment,Urine Trace /lpf; RBC,Urine Occasional #/hpf (0-3)
[2019-09-10 05:18] LABS: MANUAL DIFFERENTIAL MANUAL DIFFERENTIAL (MANUAL DIFF)
[2019-09-10 05:19] LABS: Lactic Acid 1.9 mmol/L (0.7-2.1)
[2019-09-10 05:21] LABS: Amphetamine/Metha Screen,Urine Negative ng/ml (<1000); Barbiturates Screen,Urine Negative ng/ml (<200)
[2019-09-10 05:22] LABS: Benzodiazepines Screen,Urine Negative ng/ml (<200)
[2019-09-10 05:23] LABS: Cannabinoid Screen,Urine Negative ng/ml (<50); Cocaine Screen,Urine Negative ng/ml (<300)
[2019-09-10 05:23] LABS: Lymphocytes % 3 % (10-50); Neutrophils % 84 % (42-76); Platelet Estimate Normal; RBC Morphology Normal; Total Cells Counted 100
--- NOTE | 2019-09-10 05:23 | PC.NURSE ---
PT REMAINS IN CT. [facility] AT BEDSIDE WITH BANKRUPTCY ASSISTANT.
[2019-09-10 05:24] LABS: Methadone Screen,Urine Negative ng/ml (<300)
[2019-09-10 05:25] LABS: Opiate Screen,Urine Negative ng/ml (<300); Phencyclidine Screen,Urine Negative ng/ml (<25)
[2019-09-10 05:32] LABS: Troponin I 0.02 ng/ml (0.00-0.034)
--- NOTE | 2019-09-10 05:36 | CT_ITS ---
PROCEDURE: CT ABDOMEN PELVIS WO CON CLINICAL INDICATION: fever, dementia Fever of unknown origin COMPARISON: No exams were available for comparison TECHNIQUE: Axial images obtained with sagittal and coronal reformats. All CT scans at the facility use one or more dose reduction, viz: automated exposure control, ma/kV adjustment per patient size (including targeted exams where dose is matched to indication, i.e. head), or iterative reconstruction technique. FINDINGS: LOWER THORAX: Coronary artery and aortic valve calcifications. ABDOMEN & PELVIS: Exam is limited secondary to motion artifact and beam hardening artifact over the liver and upper abdomen from patient's arms. There are multiple hypodense lesions of the liver the largest in the left hepatic lobe in segment 2 measuring 5.9 cm containing a small focus of calcification and measuring approximately 11 Hounsfield units internally. There are gallstones present. The spleen adrenal glands and kidneys have an unremarkable appearance. There are few calcifications in the pancreas which could be due to chronic pancreatitis. No intestinal obstruction or free air. No evidence of appendicitis There is a Manzanares catheter present. Artifact is present from bilateral hip prosthesis. There are few small lymph nodes in the retroperitoneum and in the internal and external iliac region bilaterally with the nodes measuring up to 1.9 by 1.5 cm in the right iliac region. No acute bony anomalies. Bilateral hip prosthesis are present with significant artifact.. IMPRESSION: 1. No acute finding. 2. Mild retroperitoneal and pelvic adenopathy 3. Indeterminate liver lesions. Consider ultrasound initially for further evaluation to determine if there is cystic or solid. If there solid then, CT or MRI with hemangioma protocol would be recommended. 4. Cholelithiasis. 5. There are few punctate calcifications in the pancreas which could be seen with chronic pancreatitis Dictated by: Julio Donnelly MD 09/10/2019 07:47 Electronically signed by Julio Donnelly MD in [place] 09/10/2019 07:47
--- NOTE | 2019-09-10 05:37 | CT_ITS ---
PROCEDURE: CT CHEST WO CON CLINICAL INDICATION: chest pain COMPARISON: CT ABDOMEN PELVIS WO CON from 09/10/2019 TECHNIQUE: Axial images obtained with sagittal and coronal reformats. All CT scans at the facility use one or more dose reduction, viz: automated exposure control, ma/kV adjustment per patient size (including targeted exams where dose is matched to indication, i.e. head), or iterative reconstruction technique. FINDINGS: There is diffuse generalized motion artifact decreasing fine detail. Scattered small nodes are present in the mediastinum. Coronary artery and aortic valve calcifications are present the. No obvious lobar consolidation or collapse. Upper abdominal images show cholelithiasis and multiple hypodense liver lesions the largest in the left hepatic lobe at 5.8 cm. There is ankylosis of the thoracic spine with no gross acute bony anomalies. There is sclerosis with deformity of the right humeral head which could be due to old injury and/or avascular necrosis. IMPRESSION: Motion artifact limits the exam. No gross acute finding evident. Other nonacute findings are present as described above. Please see abdomen report for recommendations on the liver Dictated by: Julio Donnelly MD 09/10/2019 07:53 Electronically signed by Julio Donnelly MD in [place] 09/10/2019 07:53
--- NOTE | 2019-09-10 06:03 | PC.NURSE ---
pt back from ct at this time
[2019-09-10 06:12] LABS: Alanine Aminotransferase 31 U/L (12-78); Albumin Level 4.2 g/dl (3.5-5.0); Albumin/Globulin Ratio 1.7 (1.1-1.8); Alkaline Phosphatase 61 U/L (38-126); Anion Gap 11.3 mEq/L (5-15); Aspartate Amino Transferase 32 U/L (17-59); Bilirubin,Total 0.8 mg/dl (0.2-1.3); Blood Urea Nitrogen 17 mg/dl (9-20); Calcium 9.7 mg/dl (8.4-10.2); Carbon Dioxide 24 mmol/L (22.0-30.0); Chloride 108 mmol/L (98-107); Creatinine Clearance Estimated 94 mL/min (50-200); Estimated Glomerular Filt Rate 65 ml/min (>60); GFR (African American) 78 ML/MIN (>60); Globulin 2.5 g/dL (1.3-3.2); Glucose 128 mg/dl (74-100); Potassium 4.3 mmoL/L (3.5-5.1); Sodium 139 mmol/L (136-145); Total Protein,Serum 6.7 g/dl (6.3-8.2)
--- NOTE | 2019-09-10 06:24 | PC.NURSE ---
pt family member at bedside and counseled to stay in the room.
[2019-09-10 06:36] LABS: Adenovirus,PCR Not Detected (NotDetected); Bordetella Pertussis Not Detected (NotDetected); Chlamydophila Pneumoniae, PCR Not Detected (NotDetected); Coronavirus 19, PCR Not Detected (NotDetected); Coronavirus 229E Not Detected (NotDetected); Coronavirus NL63 Not Detected (NotDetected); Coronavirus OC43 Not Detected (NotDetected); Coronovirus HKU1,PCR Not Detected (NotDetected); Human Metapneumovirus Not Detected (NotDetected); Influenza A, PCR Not Detected (NotDetected); Influenza AH1, 2009 Not Detected (NotDetected); Influenza AH1, PCR Not Detected (NotDetected); Influenza AH3,PCR Not Detected (NotDetected); Influenza B, PCR Not Detected (NotDetected); Mycoplasma Pneumoniae, PCR Not Detected (NotDected); Parainfluenza 1, PCR Not Detected (NotDetected); Parainfluenza 2, PCR Not Detected (NotDetected); Parainfluenza 3, PCR Not Detected (NotDetected); Parainfluenza 4, PCR Not Detected (NotDetected); Respiratory Syncytial Virus Not Detected (NotDetected); Rhinovirus/Enterovirus Not Detected (NotDetected)
--- NOTE | 2019-09-10 06:41 | PC.NURSE ---
assisted pt to turn and reposition in bed
--- NOTE | 2019-09-10 06:42 | HMH.EDFEV ---
ED Disposition Clinical Impression: Fever of unknown origin, Dementia, Acute alteration in mental status Disposition: Admitted as Observation Condition on Discharge: Good Referrals: Constantine Palacio [Primary Care Provider] - - Critical Care Critical Care Time: No Attestation: On 09/10/19, the high probability of a clinically significant, sudden or life threatening deterioration of the following system(s) required my full and direct attention, intervention and personal management. The time I documented below is in addition to time spent performing reported procedures but includes the following listed in this critical care notation. Medical Decision Making - Medical Records Medical records reviewed: Yes: I reviewed the patient's medical records. - [place] Inquiry Pt receiving controlled substance: No Vital Signs: 09/10/19 04:49 09/10/19 06:03 09/10/19 06:25 Temperature 102.2 F H Temperature Source Rectal Oral Pulse Rate [Right Brachial] 61 79 74 Respiratory Rate 17 16 17 Blood Pressure [Right Arm] 143/71 H 121/71 133/76 Blood Pressure Mean [Right Arm] 95 87 95 Blood Pressure Source [Right Arm] Automatic Cuff Automatic Cuff Automatic Cuff Blood Pressure Position [Right Arm] Sitting Sitting Sitting 02 Sat by Pulse Oximetry 100 100 98 Oxygen Delivery Method Room Air Room Air Room Air - Lab Data Lab results reviewed: Yes: I reviewed the patient's lab results. Lab Results 09/10/19 04:51: Urine Color Yellow, Urine Appearance Clear, Urine pH 7.0, Ur Specific [place] 1.020, Urine Protein Negative, Urine Glucose (UA) Negative, Urine Ketones Negative, Urine Blood Trace-i, Urine Nitrate Negative, Urine Bilirubin Negative, Urine Urobilinogen 1.0, Ur Leukocyte Esterase Negative, Urine RBC Occasional, Amorphous Sediment Trace 09/10/19 04:51: Urine Opiates Screen Negative, Urine Methadone Screen Negative, Ur Barbituates Screen Negative, Ur Phencyclidine Scrn Negative, Ur Amphetamines Screen Negative, U Benzodiazepines Scrn Negative, Urine Cocaine Screen Negative, U Marijuana (THC) Screen Negative 09/10/19 04:55: WBC 15.7 H, RBC 5.19, Hgb 15.6, Hct 47.0, MCV 90.6, MCH 30.0, MCHC 33.1, RDW 15.1, Plt Count 223, MPV 7.4, Neut % (Auto) 86.8 H, Lymph % (Auto) 5.4 L, [place] % (Auto) 5.7, Eos % (Auto) 0.4, Baso % (Auto) 1.6, Neut # (Auto) 13.6 H, Lymph # (Auto) 0.9, [place] # (Auto) 0.9, Eos # (Auto) 0.1, Baso # (Auto) 0.3 H, Total Counted 100, Neutrophils % (Manual) 84 H, Band Neutrophils % 13.0 H, Lymphocytes % (Manual) 3 L, Platelet Estimate Normal, RBC Morphology Normal 09/10/19 04:55: Troponin I 0.02 09/10/19 04:55: Lactate 1.9 09/10/19 04:55: Sodium 139, Potassium 4.3, Chloride 108 H, Carbon Dioxide 24, Anion Gap 11.3, BUN 17, Creatinine 1.10, Estimated Creat Clear 94, Estimated GFR 65, Est GFR ( Amer) 78, Glucose 128 H, Calcium 9.7, Total Bilirubin 0.8, AST 32, ALT 31, Alkaline Phosphatase 61, Total Protein 6.7, Albumin 4.2, Globulin 2.5, Albumin/Globulin Ratio 1.7 Result diagrams: 09/10/19 04:55 09/10/19 04:55 Orders (Tests/Meds): ORDERS Category Date Time Status CT abdomen pelvis wo con Stat Cat Scan 09/10/19 05:[address] chest wo con Stat Cat Scan 09/10/19 05:[address] head/brain wo con Stat Cat Scan 09/10/19 04:59 Taken Respiratory Panel (COVID), PCR Stat Lab 09/10/19 06:30 Received Troponin I Q3H Lab 09/10/19 08:00 Ordered Troponin I Q3H Lab 09/10/19 11:00 Ordered Blood Culture Stat Micro 09/10/19 04:55 Received - CT Data CT Scan: Head, Abdomen, Pelvis, Chest Time Received: 05:00 Preliminary Findings: Normal/NAD - ECG Data Tracing #1 I reviewed this ECG and interpreted as documented below: Normal Sinus Rhythm: Yes Medical Decision Narrative: Given the fact patient has arthralgias and fever of unknown origin at this point we will go ahead and run the rapid COVID test on this patient. Did speak with Dr. Alfonso for admission for this patient for acute alteration of mental status an
--- NOTE | 2019-09-10 06:53 | PC.NURSE ---
Decision to admit was made by
--- NOTE | 2019-09-10 06:56 | PC.NURSE ---
report given to lilli patino rn
[2019-09-10 07:15] LABS: POC Glucose,Bedside 111 (70-110)
--- NOTE | 2019-09-10 07:34 | PC.NURSE ---
family at bedside updated on plan of care. pt alert confused to time and place. pt has difficulty following commands.
[2019-09-10 07:39] LABS: Strep Scrn Group A (Rapid) Negative (Negative)
--- NOTE | 2019-09-10 08:01 | PC.NURSE ---
attempted to call report. call back in 5 mins.
[2019-09-10 08:07] LABS: Amylase 50 U/L (30-110); Lipase 67 U/L (23-300)
--- NOTE | 2019-09-10 08:22 | PC.NURSE ---
report called to Candace steel
--- NOTE | 2019-09-10 08:29 | PC.NURSE ---
pt transferred to floor per stretcher
[2019-09-10 08:52] LABS: Troponin I 0.03 ng/ml (0.00-0.034)
--- NOTE | 2019-09-10 10:31 | HMH.HP ---
*Admission Date: 09/10/19 *Chief complaint: AMS *History of present illness: Mr. Adams is a pleasant but confused 78-year-old gentleman with paucity of medical history. He presented to the ER yesterday due to concern for worsening confusion and fever. Presented to the ER via EMS because his family stated he did not know who they were and had developed fever up to almost 104 at home. In the ER he was found to be febrile and have an elevated white count with some confusion to time but denied significant other symptoms. Work-up in the ER was remarkable for leukocytosis (neutrophil predominant), fever to 102, and extensive imaging with no identifiable source. Given altered mental status, Sirs criteria, patient was admitted for further observation. This morning, patient is a poor historian and does not know why he is at the hospital. I have been unable to contact patient's as of yet but it left her a message. He does have some diffuse tenderness in his abdomen and reports history of possible colon cancer? He believes he has had part of his colon taken out. Was due for a colonoscopy recently with the [place] but it was not performed due to the pandemic. He denies taking any medications on a daily basis. Review of chart in our system identifies multiple cystic lesions on his liver that have been seen before. Previously diagnosed as benign. This morning he denies any pain, arthralgia, nausea, vomiting. Denies belly pain but is tender on palpation. Afebrile this morning and hemodynamically stable. [facility] History I have reviewed the patient's past medical history: Yes (with over the phone, patient is a poor historian) Medical History: Reports:: Dementia, Heart Murmur, Valvular Heart Disease Denies:: Diabetes Mellitus Type 1, Diabetes Mellitus Type 2 *Have you ever received a pneumonia vaccine?: Yes *Have you received a flu vaccine this season?: Yes Other Medical History: Reports: Arthritis Laterality Cases: Right: Arthroscopy Shoulder, Total Hip Replacement, Other Other Surgeries: Yes: Colon Resection Fractures: Yes ((R) hip) - *Social History Smoking Status: Former smoker Alcohol Intake: current Alcohol Intake Frequency:: 0-2 drinks per day *Occupational Status:: retired Housing: house Household Members: spouse *Travel in the last 8 weeks: None Family Hx:: No significant family history Review of Systems - Review of Systems Review of systems:: pertinent systems reviewed and negative unless documented below (14 point review of systems performed, pertinent positives and negatives as per HPI) Meds Home Medications Medication Instructions Recorded Confirmed Type No Known Home Medications 09/10/19 09/10/19 History Allergies Allergy/AdvReac Type Severity Reaction Status Date / Time No Known Allergies Allergy Verified 06/19/19 11:02 Exam Vital signs and Labs for Last 24 Hours: Temp Pulse Resp BP Pulse Ox 98.3 F 77 18 125/64 97 09/10/19 08:48 09/10/19 08:48 09/10/19 08:48 09/10/19 08:48 09/10/19 08:48 Laboratory Results - last 24 hr 09/10/19 04:51: Urine Color Yellow, Urine Appearance Clear, Urine pH 7.0, Ur Specific [place] 1.020, Urine Protein Negative, Urine Glucose (UA) Negative, Urine Ketones Negative, Urine Blood Trace-i, Urine Nitrate Negative, Urine Bilirubin Negative, Urine Urobilinogen 1.0, Ur Leukocyte Esterase Negative, Urine RBC Occasional, Amorphous Sediment Trace 09/10/19 04:51: Urine Opiates Screen Negative, Urine Methadone Screen Negative, Ur Barbituates Screen Negative, Ur Phencyclidine Scrn Negative, Ur Amphetamines Screen Negative, U Benzodiazepines Scrn Negative, Urine Cocaine Screen Negative, U Marijuana (THC) Screen Negative 09/10/19 04:55: WBC 15.7 H, RBC 5.19, Hgb 15.6, Hct 47.0, MCV 90.6, MCH 30.0, MCHC 33.1, RDW 15.1, Plt Count 223, MPV 7.4, Neut % (Auto) 86.8 H, Lymph % (Auto) 5.4 L, [place] % (Auto) 5.7, Eos % (Auto) 0.4, Baso % (Auto) 1.6, Neut # (Auto) 13.6 H, Lymph # (Auto) 0.
--- NOTE | 2019-09-10 10:37 | PC.NURSE ---
Spoke with as pt is confused and a very poor historian, to do admission. Did receive some info fro Radha Adams , she states he son has been poa in the past, his name is James Adams, but was unable to provide contact info. states pt is to be a full code. Pt was able to tell me his name and that he was at [facility], that is all, otherwise, nonsensical conversation. Will cont to mx this shift. CB in reach. states pt has no home medications.Lungs cta, s1,s2. Edema to BLE 1 plus pitting edema to nathalia lower legs.
[2019-09-10 10:51] LABS: C-Reactive Protein 19.4 mg/L (0-4)
[2019-09-10 11:06] LABS: Erythrocyte Sedimentation Rate 8 mm/hr (0-20)
--- NOTE | 2019-09-10 11:13 | HMH.PHAVTE ---
[facility] VTE Monitoring - Patient Demographics Admission date: 09/10/19 Report Date: 09/10/19 Time: 11:13 Allergies/Adverse Reactions: Patient Allergies No Known Allergies Allergy (Verified 06/19/19 11:02) Height: 1.85 m Weight: 125.22 kg Patient Problems: Current Active Problems Dementia (Chronic) Fever of unknown origin (Acute) Acute alteration in mental status (Acute) - VTE Risk Labs: VTE Related Lab Results Hgb 15.6 g/dL (14.1-18.0) 09/10/19 04:55 Hct 47.0 % (42.0-52.0) 09/10/19 04:55 Plt Count 223 K/mm3 (142-424) 09/10/19 04:55 BUN 17 mg/dl (9-20) 09/10/19 04:55 Creatinine 1.10 mg/dl (0.66-1.25) 09/10/19 04:55 Estimated Creat Clear 94 mL/min (50-200) 09/10/19 04:55 - Prophylaxis Types of VTE Prophylaxis: TEDS Knee High (LOU HOSE ORDERED)
--- NOTE | 2019-09-10 11:18 | US_ITS ---
PROCEDURE: US ABDOMEN LIMITED CLINICAL INDICATION: abdominal distention, liver lesions in CT. COMPARISON: CT ABDOMEN PELVIS WO CON from 09/10/2019 FINDINGS: This is a very limited exam technically due to patient's inability to cooperate. There are multiple liver lesions noted on the CT scan the largest in the left hepatic lobe. This does not appear to represent a simple cystic lesion showing heterogeneous echogenicity. The other liver lesions are not able to be adequately demonstrated due to the limitations. The pancreas and kidneys are not adequately demonstrated as well. Gallstones are noted. There is a cystic lesion in the right hepatic lobe measuring 2.5 cm. IMPRESSION: Very limited exam. The dominant lesion in the left hepatic lobe does appear to be solid. Neoplasm or hemangioma is considered. Follow-up CT with out and with contrast with hemangioma protocol suggested. Right hepatic lobe cyst. Cholelithiasis Dictated by: Julio Donnelly MD 09/10/2019 15:54 Electronically signed by Julio Donnelly MD in [place] 09/10/2019 15:54
[2019-09-10 11:52] LABS: Activated Partial Thrombo Time 30.5 seconds (23.6-34.0); INR 1.13 (0.9-1.1); Prothrombin Time 11.7 seconds (9.4-11.8)
[2019-09-10 11:53] LABS: Ammonia < 9 umol/L (9-30)
[2019-09-10 12:03] LABS: Troponin I 0.03 ng/ml (0.00-0.034)
[2019-09-10 12:07] LABS: Ethyl Alcohol < 10 mg/dl (0-10)
--- NOTE | 2019-09-10 18:41 | PC.NURSE ---
Pt alert to person and place intermittently. Has continued to have ams. No complaints at this time. Removed morrison per MD's order. Have infused fluids and IV ABT as ordered. Pt has napped intermittently. CB in reach. Bed alarm on for safety purposes. VSS
--- NOTE | 2019-09-10 20:20 | PC.NURSE ---
Spoke with Dr. Alfonso in RE to pt having temp of 101.4 rectal and received order for Tylenol prn q 6 hrs po, nystatin cream tid for his scrotal area which is red, tender, and warm. Dr. Alfonso also ordered a urine cx as well and gave order for a regular diet. Have noted the above.
--- NOTE | 2019-09-10 21:50 | PC.NURSE ---
spoke with sarai bonding equipment operator pharm to verify correct dosing for vanc due to incomplete med on jun. sarai gave okay to admin vancomycin 1,000 mg ADV IV mixed with 250 ml of NS ADV bag.
[2019-09-11 04:00] VITALS: BP 132/62; PULSE 64; RESP 18; TEMP 36.6; O2SAT 97
[2019-09-11 05:48] VITALS: BMI 36.6
[2019-09-11 07:09] LABS: Chloride 111 mmol/L (98-107); Potassium 4.2 mmoL/L (3.5-5.1); Sodium 139 mmol/L (136-145)
[2019-09-11 07:11] LABS: Blood Urea Nitrogen 15 mg/dl (9-20); Creatinine Clearance Estimated 98 mL/min (50-200); Estimated Glomerular Filt Rate 65 ml/min (>60); GFR (African American) 78 ML/MIN (>60)
[2019-09-11 07:12] LABS: Alanine Aminotransferase 20 U/L (12-78); Albumin Level 3.2 g/dl (3.5-5.0); Albumin/Globulin Ratio 1.3 (1.1-1.8); Alkaline Phosphatase 54 U/L (38-126); Anion Gap 8.2 mEq/L (5-15); Aspartate Amino Transferase 26 U/L (17-59); Carbon Dioxide 24 mmol/L (22.0-30.0); Globulin 2.5 g/dL (1.3-3.2); Glucose 90 mg/dl (74-100); Total Protein,Serum 5.7 g/dl (6.3-8.2)
[2019-09-11 07:35] LABS: Calcium 8.5 mg/dl (8.4-10.2)
--- NOTE | 2019-09-11 07:43 | PC.NURSE ---
A&O X3, NOT ORIENTED TO TIME. PT RESTED WELL WITH EYES CLOSED T/O SHIFT. NO ACUTE CHANGES NOTED SINCE PREVIOUS SHIFT. TOLERATED RA WELL WITH NO C/O SOA. BILATERAL LUNGS NOTED CLEAR T/O UPON AUSCULTATION. +3 PITTING EDEMA NOTED TO BLE. BILAT TEDS ON. NO C/O N/V/D OR PAIN THIS SHIFT. AMB WITH ASSIST X1 TO BATHROOM. BM NOTED THIS SHIFT. SCROTUM AND PENIS NOTED WITH ERYTHEMA. UNABLE TO ADMIN NYSTATIN CREAM THAT WAS PREVIOUSLY ORDERED DUE TO MED UNAVAILABLE IN [place]. WEARING BRIEF FOR OCCASIONAL INCONTINENCE. PT REMAINED AFEBRILE T/O SHIFT AFTER TYLENOL X1 ADMIN PER JUN AT 1900. VSS. REMAINS SAFE WITH BED ALARM ON AND FUNCTIONING. CALL LIGHT WITHIN REACH. WILL CONTINUE TO MONITOR.
[2019-09-11 07:58] VITALS: PULSE 64; RESP 20; O2SAT 96
[2019-09-11 08:00] VITALS: BP 129/61; PULSE 64; RESP 20; TEMP 36.8; O2SAT 96
[2019-09-11 08:06] LABS: Basophils # 0.1 K/mm3 (0-0.2); Basophils % 0.9 % (0.1-2.0); Eosinophils # 0.1 K/mm3 (0.0-0.4); Eosinophils % 1.6 % (0.1-12.0); Hematocrit 43.5 % (42.0-52.0); Hemoglobin 14.2 g/dL (14.1-18.0); Lymphocytes # 1.1 K/mm3 (0.7-4.5); Lymphocytes % 17.5 % (10-50); Mean Corpuscular HGB Conc 32.6 g/dL (31.8-35.4); Mean Corpuscular Hemoglobin 29.7 pg (27.0-31.2); Mean Platelet Volume 7.7 fl (7.4-10.4); Monocytes # 0.3 K/mm3 (0.1-1.0); Monocytes % 4.9 % (1.7-9.3); Neutrophils # 4.6 K/mm3 (1.8-7.8); Neutrophils % 75.1 % (37.0-80.0); Platelet Count 166 K/mm3 (142-424); Red Blood Count 4.78 M/mm3 (4.60-6.20); Red Cell Distribution Width 15.2 % (11.5-17.5); White Blood Count 6.1 K/mm3 (4.8-10.8)
[2019-09-11 09:24] LABS: Hemoglobin A1C 5.5 % (4.0-6.0)
--- NOTE | 2019-09-11 09:50 | HMH.ACPN2 ---
Internal Medicine - PN: Subj *Date: 09/11/19 *Time: 09:50 Interval history: Mr. Adams did well overnight other than developing a fever late last night. Responded well to Tylenol. Remains afebrile today. Had a bowel movement last night and a bath. Ate breakfast. is at bedside today and able to provide further history. States he is at his baseline mentation which is pleasantly confused and has difficult time with short-term recall as well as orientation to time. While talking he confused many significant events such as his hip fractures and when they occurred. Denies any chest pain, shortness of breath, nausea, vomiting, diarrhea. Does have some tenderness in his scrotum on exam but denies significant pain elsewhere. Sitting in bedside chair, and pleasant mood Exam Vital signs and Labs for Last 24 Hours: Temp Pulse Resp BP Pulse Ox 98.3 F 64 20 129/61 96 09/11/19 08:00 09/11/19 08:00 09/11/19 08:00 09/11/19 08:00 09/11/19 08:00 Laboratory Results - last 24 hr 09/10/19 04:55: ESR 8 09/10/19 04:55: C-Reactive Protein 19.4 H 09/10/19 11:30: Troponin I 0.03 09/10/19 11:30: Plasma/Serum Alcohol < 10 09/10/19 11:30: PT 11.7, INR 1.13 H, APTT 30.5 09/10/19 11:30: Ammonia < 9 L 09/11/19 06:45: Sodium 139, Potassium 4.2, Chloride 111 H, Carbon Dioxide 24, Anion Gap 8.2, BUN 15, Creatinine 1.10, Estimated Creat Clear 98, Estimated GFR 65, Est GFR ( Amer) 78, Glucose 90, Calcium 8.5 D, Total Bilirubin 1.0, AST 26, ALT 20 D, Alkaline Phosphatase 54, Total Protein 5.7 L, Albumin 3.2 L D, Globulin 2.5, Albumin/Globulin Ratio 1.3 09/11/19 07:52: WBC 6.1 D, RBC 4.78, Hgb 14.2, Hct 43.5, MCV 91.0, MCH 29.7, MCHC 32.6, RDW 15.2, Plt Count 166 D, MPV 7.7, Neut % (Auto) 75.1, Lymph % (Auto) 17.5, [place] % (Auto) 4.9, Eos % (Auto) 1.6, Baso % (Auto) 0.9, Neut # (Auto) 4.6, Lymph # (Auto) 1.1, [place] # (Auto) 0.3, Eos # (Auto) 0.1, Baso # (Auto) 0.1 09/11/19 07:52: Hemoglobin A1c 5.5 I & O for Last 24 hours: Intake & Output 09/08/19 09/09/19 09/10/19 09/11/19 23:59 23:59 23:59 23:59 Intake Total 1109 / 1109 360 / 360 Output Total 750 / 750 300 / 300 Balance 359 / 359 60 / 60 Weight 125.22 kg 125.418 kg Narrative: - Constitutional no acute distress, obese, disheveled - *Routine HEENT Exam Head: Present: normocephalic Eye: Present: EOMI, PERRL ENT: Present: mucous membranes moist - *Routine Neck Exam Present: supple. Absent: lymphadenopathy - *Routine Respiratory Exam Present: CTA bilaterally. Absent: wheezes, crackles - *Routine Cardiovascular Exam Present: RRR, murmur (systolic grade 2/6 best heard at RUQ) - *Routine Abdominal Exam Present: soft, normoactive bowel sounds, tenderness (diffuse and non-focal), surgical scars (Well-healed midline scar approximately 10 inches in length). Absent: rebound exam -Mild redness to scrotum, no significant lesions, abscesses, excoriation. Testicles mildly tender to palpation, right worse than left with palpable inguinal hernia that is reducible, non-firm. No erythema or discharge from penis - *Routine Extremities Exam Present: edema (2+ to knee on right, 1+ on left to knee). Absent: cyanosis, clubbing - *Routine Skin Exam Present: warm. Absent: rash - *Routine Neurological Exam Present: alert, altered mental status (patient is oriented to person and place however he is disoriented to time, does not know why he came to the hospital. States he feels fine today. Is having a difficult time with short-term recall); at bedside help to reorient and this improved recall somewhat. No focal neurologic deficits Assessment and Plan (1) Dementia Current visit: Yes Status: Chronic Category: Medical Code(s): F03.90 - Unspecified dementia without behavioral disturbance Back to baseline. Recommended to patient's that they have a candid discussion with patient's primary care about initiating therapies to help slow progression
[2019-09-11 16:00] VITALS: BP 144/65; PULSE 57; RESP 20; TEMP 36.5; O2SAT 100
--- NOTE | 2019-09-11 18:12 | PC.NURSE ---
Pt has been pleasant and cooperative this shift. Pt is A&O X3. He has sat in the chair the entire shift and has had no complaints of pain or SOA. 3 + pitting edema noted to BLE. IV fluids DC'd this shift. Pt ambulates with 1 assist to the bathroom, although brief is in place due to urinary dribbling. VSS. Call light within reach. Will continue to monitor.
--- NOTE | 2019-09-11 19:14 | PC.NURSE ---
report given to jyothi
[2019-09-11 20:00] VITALS: BP 142/62; PULSE 61; RESP 17; TEMP 36.6; O2SAT 96
--- NOTE | 2019-09-12 | US_ITS ---
PROCEDURE: US TESTICULAR CLINICAL INDICATION: pain and swelling of right testicle COMPARISON: No exams were available for comparison FINDINGS: The right testicle is 4 x 2 x 3.5 cm. Blood flow is present. No testicular mass is evident. The right epididymal head is somewhat enlarged and heterogeneous and contains a five mm cyst. Left testicle is 4 x 4 x 2.8 cm. No mass evident. Blood flow is present. There is a left hydrocele in there is a 6 mm left epididymal cyst IMPRESSION: 1. Mildly prominent right epididymis which could be seen with epididymitis. 2. Bilateral epididymal cyst. 3. Left-sided hydrocele Dictated by: Julio Donnelly MD 09/12/2019 09:31 Electronically signed by Julio Donnelly MD in [place] 09/12/2019 09:31
[2019-09-12 03:44] VITALS: BP 148/75; PULSE 78; RESP 17; TEMP 37; O2SAT 97
--- NOTE | 2019-09-12 05:13 | PC.NURSE ---
Pt slept in long intervals this shift. No reported complaints. Pt remains A&Ox3, unaware of time. He was up to chair most of shift w/ BLE elevated. +3 pitting edema to BLE. TEDS in place. Pt ambulates x1 assist to BR. VSS.
[2019-09-12 06:18] LABS: POC Glucose,Bedside 105 (70-110)
--- NOTE | 2019-09-12 07:53 | HMH.DCSUM ---
General - General Admission date:: 09/10/19 Discharge date: 09/12/19 HPI HPI: Mr. Adams is a pleasant but confused 78-year-old gentleman with paucity of medical history. He presented to the ER yesterday due to concern for worsening confusion and fever. Presented to the ER via EMS because his family stated he did not know who they were and had developed fever up to almost 104 at home. In the ER he was found to be febrile and have an elevated white count with some confusion to time but denied significant other symptoms. Work-up in the ER was remarkable for leukocytosis (neutrophil predominant), fever to 102, and extensive imaging with no identifiable source. Given altered mental status, Sirs criteria, patient was admitted for further observation. This morning, patient is a poor historian and does not know why he is at the hospital. I have been unable to contact patient's as of yet but it left her a message. He does have some diffuse tenderness in his abdomen and reports history of possible colon cancer? He believes he has had part of his colon taken out. [facility] but [facility] was not [facility] due to the [facility]. He denies taking any medications on a daily basis. Review of chart in our system identifies multiple cystic lesions on his liver that have been seen before. Previously diagnosed as benign. This morning he denies any pain, arthralgia, nausea, vomiting. Denies belly pain but is tender on palpation. Afebrile this morning and hemodynamically stable. Hospital Course Hospital Course: Mr. Adams has done well since admission. Fever has defervesced. UA was concerning for infection. Ultrasound performed of scrotum as he had tenderness on exam. Findings most consistent both imaging with ultrasound and on exam with epididymitis. Consult was placed for urology. Patient initiated on empiric antibiotics for epididymitis. Plan to follow-up in the outpatient setting with urology. Mentation returned to baseline per 's report. Patient tolerating good p.o. intake, oral medication, mentating at baseline, and stable on room air. Medically stable for discharge home. Denies nausea, vomiting, diarrhea, dizziness. Improvement in scrotal pain. Elevate scrotum per recommendations from urology. Objective Vital signs: Temp Pulse Resp BP Pulse Ox 98.6 F 78 17 148/75 H 97 09/12/19 03:44 09/12/19 03:44 09/12/19 03:44 09/12/19 03:44 09/12/19 03:44 Narrative: - Constitutional no acute distress, obese, at bedside on exam - *Routine HEENT Exam Head: Present: normocephalic Eye: Present: EOMI, PERRL ENT: Present: mucous membranes moist - *Routine Neck Exam Present: supple. Absent: lymphadenopathy - *Routine Respiratory Exam Present: CTA bilaterally. Absent: wheezes, crackles - *Routine Cardiovascular Exam Present: RRR, murmur (systolic grade 2/6 best heard at RUQ) - *Routine Abdominal Exam Present: soft, normoactive bowel sounds, nontender, surgical scars (Well-healed midline scar approximately 10 inches in length). Absent: rebound exam -Interval improvement in tenderness, right worse than left, non-firm. No erythema or discharge from penis - *Routine Extremities Exam Present: edema (2+ to knee on right, 1+ on left to knee). Absent: cyanosis, clubbing - *Routine Skin Exam Present: warm. Absent: rash - *Routine Neurological Exam Present: alert, oriented to person and place, disoriented to time. At baseline per 's report; at bedside help to reorient and this improved recall somewhat. No focal neurologic deficits Results Labs on day of discharge: Labs from last 24 hours 09/12/19 09/11/19 09/11/19 06:07 07:52 07:52 WBC 6.1 D RBC 4.78 Hgb 14.2 Hct 43.5 MCV 91.0 MCH 29.7 MCHC 32.6 RDW 15.2 Plt Count 166 D MPV 7.7 Neut % (Auto) 75.1 Lymph % (Auto) 17.5 [place] % (Auto) 4.9 Eos
[2019-09-12 08:00] VITALS: BP 128/48; PULSE 89; RESP 18; TEMP 36.7; O2SAT 95
[2019-09-12 12:06] LABS: POC Glucose,Bedside 80 (70-110)
--- NOTE | 2019-09-12 13:04 | HMH.CONS ---
*Admission Date: 09/10/19 *Reason for consult:: Scrotal swelling and pain *History of present illness: Patient is a 78-year-old white male admitted on September 09 with an acute alteration of his mental status, temperature to 104 and arthralgias. His white count on admission was 15.7. He was started on IV antibiotics and physical examination by Dr. Alfonso showed tender scrotal region with right greater than left as well as some mild penoscrotal edema. CT scan showed a liver lesion a bit suspicious. Kidneys, ureter and bladder appeared normal. Patient's urine cultures negative at 2 days. Renal function liver functions normal except for his total protein and albumin. He is a poor historian with some mild baseline dementia. States he does not know how long his testicles have been sore. The working diagnosis at this point for his initial presentation is sepsis from epididymitis. His white count improved to 6000 on hospital day 2. [facility] History Medical History: Reports:: Dementia, Heart Murmur, Valvular Heart Disease Denies:: Diabetes Mellitus Type 1, Diabetes Mellitus Type 2 *Have you ever received a pneumonia vaccine?: Yes *Have you received a flu vaccine this season?: Yes Other Medical History: Reports: Arthritis Laterality Cases: Right: Arthroscopy Shoulder, Total Hip Replacement, Other Other Surgeries: Yes: Colon Resection Fractures: Yes ((R) hip) - *Social History Smoking Status: Former smoker Alcohol Intake: current Alcohol Intake Frequency:: 0-2 drinks per day *Occupational Status:: retired Housing: house Household Members: spouse *Travel in the last 8 weeks: None Family Hx:: No significant family history Review of Systems - Review of Systems Review of systems:: pertinent systems reviewed and negative unless documented below Meds Home Medications Medication Instructions Recorded Confirmed Type Nystatin [Nystatin Cr 100,000 1 gm TP TID 10 Days #1 tube 09/12/19 Rx Units/GM 30GM] levoFLOXacin [Levaquin 750mg 750 mg PO DAILY 11 Days #11 tab 09/12/19 Rx tablet] Allergies Allergy/AdvReac Type Severity Reaction Status Date / Time No Known Allergies Allergy Verified 06/19/19 11:02 Exam Vital signs and Labs for Last 24 Hours: Temp Pulse Resp BP Pulse Ox 98.0 F 89 18 128/48 L 95 09/12/19 08:00 09/12/19 08:00 09/12/19 08:00 09/12/19 08:00 09/12/19 08:00 Laboratory Results - last 24 hr 09/12/19 06:07: POC Glucose 105 09/12/19 11:54: POC Glucose 80 I & O for Last 24 hours: Intake & Output 09/09/19 09/10/19 09/11/19 09/12/19 23:59 23:59 23:59 23:59 Intake Total 1109 / 1109 1500 / 1500 Output Total 750 / 750 840 / 840 Balance 359 / 359 660 / 660 Weight 125.22 kg 125.418 kg Microbiology Reports for the Last 24 Hours: Microbiology 09/10/19 07:25 Throat Group A Streptococcus Screen (MISAEL) - Final Negative for Group A Streptococcus. 09/10/19 04:55 Blood Blood Culture - Preliminary NO GROWTH AFTER 48 HOURS 09/10/19 04:55 Blood Blood Culture - Preliminary NO GROWTH AFTER 48 HOURS 09/10/19 04:51 Urine,Random Urine Culture - Preliminary NO GROWTH AFTER 24 HOURS Narrative: Obese white male in no apparent distress Pupils equal round reactive to light Head is normocephalic Neck is symmetric Normal respiratory effort Abdomen soft nondistended examination reveals some edema of the foreskin, he is uncircumcised, scrotum show some mild generalized edema. Patient is tender to touch in the scrotal region. He is tender on the right than the left. Left epididymis does not appear swollen there is no evidence of any left testicular nodules. Right epididymis does not show a demarcation between the testicle and the epididymis but there are no testicular nodules. There is tenderness to the right testicle and epididymis. Internal Medicine - OPAL: Nicolas
--- NOTE | 2019-09-12 14:36 | HMH.PHAINT ---
DISCHARGE COUNSELING COMPLETED ON PATIENT. NEW PRESCRIPTIONS INCLUDE NYSTATIN CREAM TO BE APPLIED TO AFFECTED AREA THREE TIMES DAILY AND LEVOFLOXACIN TO BE TAKEN FOR 11 DAYS. PATIENT DOES NOT TAKE ANY OTHER HOME MEDICATIONS. PATIENT AND PATIENT'S VERBALIZED UNDERSTANDING. -YEISON SANCHEZ, DHIRAJD
== END 2019-09-12 14:58 | disposition home or self-care (01) ==
LOC: ER 06:48 → 2ND 07:57
PROVIDERS: Admitting Provider Internal Medicine Adolescent Medicine; Emergency Provider Family Medicine; PCP Internal Medicine; Visit Provider Internal Medicine Adolescent Medicine
DX: N45.1 Epididymitis (principal); N50.811 Right testicular pain; F03.90 Unspecified dementia, unspecified severity, without behavioral disturbance, psychotic disturbance, mood disturbance, and anxiety; Z90.49 Acquired absence of other specified parts of digestive tract; Z96.642 Presence of left artificial hip joint; R50.9 Fever, unspecified; R41.82 Altered mental status, unspecified; R79.89 Other specified abnormal findings of blood chemistry; R10.10 Upper abdominal pain, unspecified
CPT/HCPCS: 36415; 70450; 71250; 74176; 76705; 76870; 80053; 80305; 81001; 82140; 82150; 82962; 83036; 83605; 83690; 84484; 85007; 85025; 85610; 85651; 85730; 86140; 87040; 87086; 87430; 87581; 87633; 87798; 93005; 96365; 96375; 99285; G0378; J0692; J2543; J3370

== ENCOUNTER → 2019-10-09 07:55 | Outpatient (CLI) | payer MEDICARE, SELFPAY ==
[2019-10-09 09:57] LABS: Blood Urea Nitrogen 15 mg/dl (9-20); Estimated Glomerular Filt Rate 65 ml/min (>60); GFR (African American) 78 ML/MIN (>60)
== END ==
PROVIDERS: Visit Provider Internal Medicine
DX: Z01.818 Encounter for other preprocedural examination (principal); Q44.6 Cystic disease of liver
CPT/HCPCS: 36415; 82565; 84520

== ENCOUNTER → 2019-10-10 08:40 | Outpatient (CLI) | payer MEDICARE, SELFPAY ==
--- NOTE | 2019-10-10 08:43 | CT_ITS ---
PROCEDURE: CT ABDOMEN PELVIS WO/W CON CLINICAL INDICATION: CYSTIC LESION COMPARISON: CT ABDOMEN PELVIS WO CON from 09/10/2019 TECHNIQUE: IV Contrast: 75ML OPTIRAY 350 Oral Contrast None Axial images obtained with sagittal and coronal reformats. All CT scans at the facility use one or more dose reduction, viz: automated exposure control, ma/kV adjustment per patient size (including targeted exams where dose is matched to indication, i.e. head), or iterative reconstruction technique. FINDINGS: CT scan of the abdomen with and without contrast: There are few scattered small blebs throughout the bilateral lower lobes. There is mild hypoventilation at both lung bases. There are multiple cystic lesions throughout the hepatic parenchyma of which the largest in the right lobe measures 30 millimeters and the largest in the left lobe measures 60 millimeters. This lesion displays a partially calcified rim. These lesions are well-defined and do not enhance and have Hounsfield units consistent with a cyst. Gallstones are present. The adrenal glands pancreas, spleen, kidneys, aorta, small and large bowel, soft tissues, area of the appendix, and the bony structures are unremarkable. CT scan of the pelvis without contrast. There is streak artifact from a left hip arthroplasty and right femoral pins. The prostate is grossly unremarkable. Bladder, soft tissues and the other bony structures are unremarkable. IMPRESSION: Multiple hepatic cysts, gallstones Dictated by: Silverio Linton 10/10/2019 09:56 Electronically signed by Silverio Linton in [place] 10/10/2019 09:56
== END ==
PROVIDERS: PCP Internal Medicine; Visit Provider Internal Medicine
DX: Q44.6 Cystic disease of liver (principal)
CPT/HCPCS: 74178; Q9967

== ENCOUNTER → 2019-10-13 11:05 | Outpatient (CLI) | payer MEDICARE, SELFPAY ==
--- NOTE | 2019-10-13 11:09 | XR_ITS ---
PROCEDURE: XR CHEST 2V CLINICAL HISTORY: LT CHEST PAIN COMPARISON: CXR CHEST(2 VIEWS-NOT PORTABLE) from 07/16/2015 Chest from 09/21/2018 CT CHEST WO CON from 09/10/2019 FINDINGS: The heart is enlarged. There is mild degenerative thoracic scoliosis. Lung mckenzie are clear and the soft tissues are intact. IMPRESSION: Cardiomegaly, degenerative thoracic scoliosis, clear lung mckenzie Dictated by: Silverio Linton 10/13/2019 11:35 Electronically signed by Silvreio Linton in [place] 10/13/2019 11:35
== END ==
PROVIDERS: PCP Internal Medicine; Visit Provider Internal Medicine
DX: R07.89 Other chest pain (principal)
CPT/HCPCS: 71046

== ENCOUNTER 2019-10-14 19:26 | Emergency (ER) | payer MEDICARE, SELFPAY ==
[2019-10-14] VITALS (8 sets, daily range): BP systolic 112–130; BP diastolic 55–61; PULSE 68–82; RESP 16–18; TEMP 38.8; O2SAT 82–97; BMI 30.3
--- NOTE | 2019-10-14 20:32 | CT_ITS ---
Procedure: CT ABDOMEN PELVIS W CON Patient Age:78Y CLINICAL INDICATION: scrotal swelling with fever . Abdominal pain. History of colon cancer within the the the the cancers polyps removed. Bilateral hip replacements COMPARISON: CT ABDOMEN PELVIS WO/W CON from 10/10/2019 TECHNIQUE: IV contrast given: 75 cc Optiray 350 Portal venous phase image at 70 seconds followed by 5 minutes delayed image sequence Oral contrast given: Diluted Gastroview enteric contrast. Helical, axial images obtained with sagi the ttal and coronal reformats. All CT scans at the facility use one or more dose reduction, viz: automated exposure control, ma/kV adjustment per patient size (including targeted exams where dose is matched to indication, i.e. head), or iterative reconstruction technique. FINDINGS: Lower thorax: .. Lung bases better expanded and clear than on 10/10/2019. Borderline cardiomegaly ABDOMEN: Liver: Several scattered liver cyst. Largest measuring 6 cm off the medial margin of the left lower lobe.. The 3 cm cyst at the superior right lobe the the. Other smaller cyst elsewhere along the anterior right and left lobe. Thin cyst wall the with lack of enhancement at these benign-appearing hepatic cyst. The The spleen normal size and appearance the. Pancreas unremarkable. Adrenals unremarkable Cholelithiasis. At least 2 dominant stones evident the largest measuring nearly 2 cm the size . Common duct normal diameter no biliary ductal dilatation. Pancreas unremarkable but tract t Kidneys. No urinary tract calculi nor obstruction no hydronephrosis. Ureters unremarkable. Normal enhancement of kidneys. Only noted a tiny less than 1 cm cyst lower pole left kidney. Barely evident. The the the PELVIS: bladder: Unremarkable. No stone or mass. Mild enlarged prostate 5.8 cm maximally transverse the No free fluid pelvis. Streak artifact from the metallic left hip prosthesis and right hip fixation limited detail. . The scrotum is only partially imaged but there does appear to be prominent fluid surrounding the visualized testicle a to the right of midline. Suggest hydrocele the the the the the the a Suggestion developing bilateral fat containing inguinal hernias, most evident on the right. No bowel loops. No inflammation of fat extending along either inguinal canal GI tract The cecum resides in the right upper quadrant. Normal appearing appendix seen here. Suggestion of bowel anastomosis at the proximal transverse colon right upper quadrant, better seen on the 10/10/2019 study. The enteric contrast has moved quickly through normal caliber stomach and small bowel as well as through majority of the large bowel contrast is seen to the sigmoid colon. Moderate air-fluid levels in the large bowel with some associated gaseous distension at the transverse colon. This liquid stool appearance likely reflects the slight cathartic affect of the Gastroview contrast.-But may reflect some developing diarrhea or loose stool Stomach bowel: Nondistended the. No obvious mass or thickening. Peritoneum: No abnormal fluid collections. No obvious inflammatory changes. No free air. Lymph nodes: No enlarged lymph nodes apparent. Vasculature: No evidence of abdominal aortic aneurysm. No retroperitoneal hemorrhage evident. Bones: No stable appearance since previous study the left bipolar hip replacement and previous ORIF right hip again noted. IMPRESSION: . No acute findings abdomen or pelvis. Appendix normal . Cholelithiasis again noted . Multiple benign-appearing hepatics cyst again note . Developing bilateral fat containing inguinal hernias most notable on right. No associated bowel loops, no
[2019-10-14 20:36] LABS: Alanine Aminotransferase 33 U/L (12-78); Albumin/Globulin Ratio 1.3 (1.1-1.8); Alkaline Phosphatase 51 U/L (38-126); Anion Gap 10.3 mEq/L (5-15); Aspartate Amino Transferase 51 U/L (17-59); Basophils % 0.5 % (0.1-2.0); Bilirubin,Total 0.9 mg/dl (0.2-1.3); Blood Urea Nitrogen 19 mg/dl (9-20); Carbon Dioxide 26 mmol/L (22.0-30.0); Chloride 102 mmol/L (98-107); Creatinine Clearance Estimated 75 mL/min (50-200); Eosinophils % 0.3 % (0.1-12.0); Estimated Glomerular Filt Rate 59 ml/min (>60); GFR (African American) 71 ML/MIN (>60); Glucose 100 mg/dl (74-100); Hematocrit 43.9 % (42.0-52.0); Hemoglobin 14.7 g/dL (14.1-18.0); Lymphocytes # 0.8 K/mm3 (0.7-4.5); Lymphocytes % 20.9 % (10-50); Mean Corpuscular HGB Conc 33.5 g/dL (31.8-35.4); Mean Corpuscular Hemoglobin 29.6 pg (27.0-31.2); Mean Corpuscular Volume 88.4 fl (80-94); Mean Platelet Volume 7.4 fl (7.4-10.4); Monocytes # 0.3 K/mm3 (0.1-1.0); Monocytes % 7.8 % (1.7-9.3); Neutrophils # 2.6 K/mm3 (1.8-7.8); Neutrophils % 70.5 % (37.0-80.0); Platelet Count 141 K/mm3 (142-424); Potassium 4.3 mmoL/L (3.5-5.1); Red Blood Count 4.97 M/mm3 (4.60-6.20); Sodium 134 mmol/L (136-145); White Blood Count 3.7 K/mm3 (4.8-10.8)
--- NOTE | 2019-10-14 20:38 | HMH.EDUROGM ---
ED Disposition Clinical Impression: Febrile illness, acute, SIRS (systemic inflammatory response syndrome), Epididymitis Disposition: Home, Self-Care Condition on Discharge: Good Instructions: DI for Epididymitis Additional Instructions: use meds and call pcp on wednesday Prescriptions: levoFLOXacin [Levaquin 500mg tab] 500 mg PO DAILY #7 tab Transmission Status: Pending to [id number] Referrals: Constantine Palacio [Primary Care Provider] - - Critical Care Critical Care Time: No Attestation: On 10/14/19, the high probability of a clinically significant, sudden or life threatening deterioration of the following system(s) required my full and direct attention, intervention and personal management. The time I documented below is in addition to time spent performing reported procedures but includes the following listed in this critical care notation. Medical Decision Making - Medical Records Medical records reviewed: Yes: I reviewed the patient's medical records. - [place] Inquiry Pt receiving controlled substance: No Vital Signs: 10/14/19 19:58 10/14/19 20:04 10/14/19 20:30 Temperature 102 F H Temperature Source Rectal Pulse Rate [Left] 79 82 76 Respiratory Rate 17 16 17 Blood Pressure [Right Arm] 119/59 L 112/58 L 120/57 L Blood Pressure Mean [Right Arm] 79 76 78 Blood Pressure Source [Right Arm] Automatic Cuff Automatic Cuff Automatic Cuff Blood Pressure Position [Right Arm] Supine Supine Supine 02 Sat by Pulse Oximetry 94 L 82 L 96 Oxygen Delivery Method Room Air Room Air Room Air 10/14/19 21:00 10/14/19 21:30 10/14/19 22:00 Temperature Temperature Source Pulse Rate [Left] 75 76 72 Respiratory Rate 16 16 18 Blood Pressure [Right Arm] 122/59 L 130/61 115/55 L Blood Pressure Mean [Right Arm] 80 84 75 Blood Pressure Source [Right Arm] Automatic Cuff Automatic Cuff Automatic Cuff Blood Pressure Position [Right Arm] Supine Supine Supine 02 Sat by Pulse Oximetry 95 95 95 Oxygen Delivery Method Room Air Room Air Room Air 10/14/19 22:30 10/14/19 23:00 Temperature Temperature Source Pulse Rate [Left] 72 68 Respiratory Rate 18 17 Blood Pressure [Right Arm] 130/60 126/59 L Blood Pressure Mean [Right Arm] 83 81 Blood Pressure Source [Right Arm] Automatic Cuff Automatic Cuff Blood Pressure Position [Right Arm] Supine Supine 02 Sat by Pulse Oximetry 97 95 Oxygen Delivery Method Room Air Room Air - Lab Data Lab results reviewed: Yes: I reviewed the patient's lab results. Lab Results 10/14/19 20:00: WBC 3.7 L, RBC 4.97, Hgb 14.7, Hct 43.9, MCV 88.4, MCH 29.6, MCHC 33.5, RDW 15.0, Plt Count 141 L, MPV 7.4, Neut % (Auto) 70.5, Lymph % (Auto) 20.9, [place] % (Auto) 7.8, Eos % (Auto) 0.3, Baso % (Auto) 0.5, Neut # (Auto) 2.6, Lymph # (Auto) 0.8, [place] # (Auto) 0.3, Eos # (Auto) 0.0, Baso # (Auto) 0.0, ESR 11 10/14/19 20:00: Sodium 134 L, Potassium 4.3, Chloride 102, Carbon Dioxide 26, Anion Gap 10.3, BUN 19, Creatinine 1.20, Estimated Creat Clear 75, Estimated GFR 59, Est GFR ( Amer) 71, Glucose 100, Calcium 9.0, Total Bilirubin 0.9, AST 51, ALT 33, Alkaline Phosphatase 51, C-Reactive Protein 35.9 H, Total Protein 7.0, Albumin 4.0, Globulin 3.0, Albumin/Globulin Ratio 1.3 10/14/19 20:00: Lactate 1.0 10/14/19 22:20: Urine Color Yellow, Urine Appearance Clear, Urine pH 5.5, Ur Specific [place] >= 1.030, Urine Protein Negative, Urine Glucose (UA) Negative, Urine Ketones Negative, Urine Blood Negative, Urine Nitrate Negative, Urine Bilirubin Negative, Urine Urobilinogen 0.2, Ur Leukocyte Esterase Negative, Urine WBC Occasional, Urine Mucus 1+ Result diagrams: 10/14/19 20:00 10/14/19 20:00 Orders (Tests/Meds): ED MEDICATIONS Generic Name Dose Route Start Last Admin Trade Name Freq PRN Reason Stop Dose Admin Sodium Chloride 1,000 mls @ 999 mls/hr 10/14/19 20:30 10/14/19 20:27 Sod Chlor 0.9% 1000ml Bag IV 10/14/19 21:30 999 mls/hr .Q1H1M GROVER Administration Discontinued
[2019-10-14 20:41] LABS: C-Reactive Protein 35.9 mg/L (0-4)
--- NOTE | 2019-10-14 21:10 | PC.NURSE ---
Pt completed oral contrast X-ray notified
[2019-10-14 21:11] LABS: Erythrocyte Sedimentation Rate 11 mm/hr (0-20)
[2019-10-14 22:25] LABS: Microscopic, Urine URINE MICROSCOPIC (MICROSCOPIC)
[2019-10-14 22:30] LABS: Appearance,Urine CLEAR (Clear); Bilirubin,Urine Negative (Negative); Blood, Urine Negative (Negative); Color,Urine YELLOW (Yellow); Glucose,Urine (UA) Negative (Negative); Ketones,Urine Negative (Negative); Leukocyte Esterase,Urine Negative (Negative); Nitrate,Urine Negative (Negative); PH,Urine 5.5 (5.0-8.5); Protein,Urine Negative (Negative); Specific Gravity, Urine >= 1.030 (1.005-1.030); Urobilinogen,Urine 0.2 EU/dl (0.2)
[2019-10-14 22:38] LABS: Mucus,Urine 1+ /lpf; WBC,Urine Occasional #/hpf (0-3)
--- NOTE | 2019-10-14 23:15 | PC.NURSE ---
pt to ct
[2019-10-15 01:07] VITALS: BP 128/68; PULSE 68; RESP 16; TEMP 36.7; O2SAT 95
== END 2019-10-15 01:10 | disposition home or self-care (01) ==
PROVIDERS: Emergency Medicine; Emergency Provider Family Medicine; PCP Internal Medicine
DX: N45.1 Epididymitis (principal); N50.811 Right testicular pain; R65.10 Systemic inflammatory response syndrome (SIRS) of non-infectious origin without acute organ dysfunction; F03.90 Unspecified dementia, unspecified severity, without behavioral disturbance, psychotic disturbance, mood disturbance, and anxiety; Z87.891 Personal history of nicotine dependence; R01.1 Cardiac murmur, unspecified
CPT/HCPCS: 74177; 80053; 81001; 83605; 85025; 85651; 86140; 87040; 87086; 96365; 96375; 99284; Q9967

== ENCOUNTER 2019-11-15 22:41 | Emergency (ER) | payer MEDICARE, SELFPAY ==
[2019-11-15 23:06] VITALS: BP 176/54; PULSE 54; RESP 17; TEMP 36.8; O2SAT 96; BMI 35.9
--- NOTE | 2019-11-15 23:22 | CT_ITS ---
PROCEDURE: CT ABDOMEN PELVIS WO CON CLINICAL INDICATION: ABDOMINAL PAIN POST COLONOSCOPY October. COMPARISON: CT ABDOMEN PELVIS W CON from 10/14/2019 TECHNIQUE: Axial images obtained with sagittal and coronal reformats. All CT scans at the facility use one or more dose reduction, viz: automated exposure control, ma/kV adjustment per patient size (including targeted exams where dose is matched to indication, i.e. head), or iterative reconstruction technique. FINDINGS: LOWER THORAX: The lung bases demonstrate multiple linear areas of atelectasis bilaterally. There is evidence of background pulmonary emphysema. There is cardiomegaly. Right coronary arterial and aortic valve dense calcifications. Increased pericardial fat pad. ABDOMEN & PELVIS: Hepatobiliary: There is decreased attenuation of the liver, consistent with steatosis. Redemonstrated multiple hepatic cysts, unchanged since the prior. Unchanged cholelithiasis. No ductal dilatation. Pancreas: Normal unenhanced pancreas. Spleen: The spleen is not enlarged. Adrenals: The adrenal glands are normal. Kidneys, ureters and bladder: Both kidneys have a normal size and morphology. Neither kidney shows calculi or hydronephrosis. Both ureters have a normal course and caliber. The urinary bladder is partially empty. Gastrointestinal: The stomach and small bowel are normal with no obstruction or inflammation. The large bowel is within normal limits. Reproductive organs: Unremarkable as visualized. Evaluation of the pelvis is hampered by extensive metallic beam hardening artifact from patient's bilateral hip orthopedic hardware. No significant lymphadenopathy demonstrated within the abdomen/pelvis. Vasculature: There is diffuse atherosclerotic calcification and tortuosity of the abdominal aorta, but no aneurysm. Peritoneum: No free fluid, free air or inflammation is evident. Abdominal wall and musculoskeletal: Bilateral inguinal hernias containing fat. Left hip arthroplasty. Right hip internal fixation with a side plate and a cannulated screw. Mild/moderate right hip osteoarthrosis. Osteopenia with mild multiple vertebral compression deformities. Exaggerated lumbar lordosis. No acute fracture identified. IMPRESSION: 1.No acute noted in the abdomen/pelvis. 2. Cardiomegaly. Atheromatous calcification of the visualized right coronary artery. 3. Hepatic steatosis. Cholelithiasis. 4. No free intraperitoneal air or free fluid is seen. 5. Bilateral fat containing inguinal hernias. Dictated by: Toya Melo 11/16/2019 12:33 Electronically signed by Toya Melo in [place] 11/16/2019 12:33
[2019-11-15 23:24] VITALS: BP 167/60; PULSE 58; RESP 18; O2SAT 97
--- NOTE | 2019-11-16 00:24 | HMH.EDABDPAI ---
ED Disposition Clinical Impression: Abdominal pain Disposition: Home, Self-Care Condition on Discharge: Good Instructions: Acute Abdominal Pain Additional Instructions: Expect to have some continued gas pain secondary to the colonoscopy that he had done yesterday for the next probably 24 hours. If pain persists after that please return to the emergency department or call the physician that did the procedure. Referrals: Constantine Palacio [Primary Care Provider] - - Critical Care Critical Care Time: No Attestation: On 11/15/19, the high probability of a clinically significant, sudden or life threatening deterioration of the following system(s) required my full and direct attention, intervention and personal management. The time I documented below is in addition to time spent performing reported procedures but includes the following listed in this critical care notation. Medical Decision Making - Medical Records Medical records reviewed: Yes: I reviewed the patient's medical records. - [place] Inquiry Pt receiving controlled substance: No Vital Signs: 11/15/19 23:06 11/15/19 23:24 Temperature 98.2 F Temperature Source Oral Pulse Rate [Right Brachial] 54 L 58 L Respiratory Rate 17 18 Blood Pressure [Right Arm] 176/54 H 167/60 H Blood Pressure Mean [Right Arm] 94 95 Blood Pressure Source [Right Arm] Automatic Cuff Blood Pressure Position [Right Arm] Sitting 02 Sat by Pulse Oximetry 96 97 Oxygen Delivery Method Room Air Room Air - Lab Data Lab results reviewed: Yes: I reviewed the patient's lab results. Orders (Tests/Meds): ORDERS Category Date Time Status CT abdomen pelvis wo con Stat Cat Scan 11/15/19 23:22 Taken - CT Data CT Scan: Abdomen, Pelvis Time Received: 00:00 Preliminary Findings: Normal/NAD Abdominal Pain HPI - General Chief Complaint: Abdominal Pain Stated Complaint: possible gas pressure in stomach Time Seen by Provider: 11/16/19 00:10 Mode of Arrival: Ambulatory Limitations: No Limitations Description of Symptoms (Recalled from ER Triage Doc. by RN): PATIENT REPORTS MIDLINE ABDOMINAL GAS PAINS. PATIENT REPORTS THE PAIN DOES NOT RADIATE ANYWHERE. PATIENT REPORTS HE HAD A COLONOSCOPY [facility]ERDAY AT [facility], PER PT, HE WAS TOLD TO EXPECT TP EXPECT GAS PAIN FOR THE NEXT FEW DAYS AND IT EXPEREINCING LOTS OF GAS AT TIME. - History of Present Illness HPI narrative: 78-year-old gentleman presents here to the emergency room with abdominal pain. Patient had a colonoscopy yesterday and he is having a lot of gas pain and belching today. They did give him his discharge instructions that he would experience some abdominal pain and have some gas and some flatulence for 24 to 48 hours after the procedure however patient presented here to the ED with diffuse abdominal pain that is colicky in nature and is belching. Patient denies any nausea or vomiting. Patient denies any recent fever shakes or chills. Onset (ago): hour(s) Consistency: intermittent Location: diffuse Severity scale (1-10): 3 Quality: cramping Radiation: none Migration to: no migration Relieving factors: nothing Exacerbating factors: nothing Context: recent surgery/procedure, other - Related Data Home Medications Medication Instructions Recorded Confirmed Donepezil HCl [Donepezil ODT 5mg] 5 mg PO HS 10/14/19 10/14/19 Previous Rx's Medication Instructions Recorded levoFLOXacin [Levaquin 500mg 500 mg PO DAILY #7 tab 10/15/19 tab] Allergies Allergy/AdvReac Type Severity Reaction Status Date / Time No Known Allergies Allergy Verified 09/26/19 10:50 [facility] History - Hepatitis A Screen Drug use history?: No High risk sexual behaviors?: No History of sexually transmitted infection?: No Currently employed?: No Childcare worker?: No Do you have indoor plumbing?: Yes Do you have electricity?: Yes Attestation statement:: This patient has been screened for Hepatitis A risk factors. I have
[2019-11-16 00:30] VITALS: BP 162/78; PULSE 60; RESP 14; TEMP 36.8; O2SAT 97
== END 2019-11-16 00:32 | disposition home or self-care (01) ==
PROVIDERS: Emergency Provider Family Medicine; PCP Internal Medicine
DX: G89.18 Other acute postprocedural pain (principal); R10.84 Generalized abdominal pain; F03.90 Unspecified dementia, unspecified severity, without behavioral disturbance, psychotic disturbance, mood disturbance, and anxiety; I38 Endocarditis, valve unspecified; R01.1 Cardiac murmur, unspecified; Z79.899 Other long term (current) drug therapy; Z96.641 Presence of right artificial hip joint
CPT/HCPCS: 74176; 99282

== ENCOUNTER → 2019-11-27 11:05 | Outpatient (CLI) | payer MEDICARE, SELFPAY ==
[2019-11-27 11:16] LABS: Basophils % 0.4 % (0.1-2.0); Eosinophils # 0.1 K/mm3 (0.0-0.4); Eosinophils % 1.3 % (0.1-12.0); Hematocrit 46.2 % (42.0-52.0); Hemoglobin 15.4 g/dL (14.1-18.0); Lymphocytes # 1.6 K/mm3 (0.7-4.5); Lymphocytes % 21.6 % (10-50); Mean Corpuscular HGB Conc 33.4 g/dL (31.8-35.4); Mean Corpuscular Hemoglobin 29.3 pg (27.0-31.2); Mean Corpuscular Volume 87.8 fl (80-94); Mean Platelet Volume 7.3 fl (7.4-10.4); Monocytes # 0.4 K/mm3 (0.1-1.0); Monocytes % 6.2 % (1.7-9.3); Neutrophils % 70.4 % (37.0-80.0); Platelet Count 249 K/mm3 (142-424); Red Blood Count 5.26 M/mm3 (4.60-6.20); Red Cell Distribution Width 14.4 % (11.5-17.5); White Blood Count 7.1 K/mm3 (4.8-10.8)
[2019-11-27 11:33] LABS: Chloride 104 mmol/L (98-107); Potassium 4.3 mmoL/L (3.5-5.1); Sodium 141 mmol/L (136-145)
[2019-11-27 11:35] LABS: Amylase 30 U/L (30-110); Blood Urea Nitrogen 12 mg/dl (9-20); Estimated Glomerular Filt Rate 65 ml/min (>60); GFR (African American) 78 ML/MIN (>60)
[2019-11-27 11:36] LABS: Alanine Aminotransferase 21 U/L (12-78); Albumin Level 3.7 g/dl (3.5-5.0); Albumin/Globulin Ratio 1.4 (1.1-1.8); Alkaline Phosphatase 55 U/L (38-126); Anion Gap 12.3 mEq/L (5-15); Aspartate Amino Transferase 25 U/L (17-59); Bilirubin,Total 1.1 mg/dl (0.2-1.3); Calcium 9.9 mg/dl (8.4-10.2); Carbon Dioxide 29 mmol/L (22.0-30.0); Globulin 2.7 g/dL (1.3-3.2); Glucose 101 mg/dl (74-100); Total Protein,Serum 6.4 g/dl (6.3-8.2)
== END ==
PROVIDERS: Visit Provider Internal Medicine
DX: R10.13 Epigastric pain (principal)
CPT/HCPCS: 80053; 82150; 85025

== ENCOUNTER → 2020-07-09 15:12 | Outpatient (CLI) | payer MEDICARE, SELFPAY ==
--- NOTE | 2020-07-09 15:19 | XR_ITS ---
PROCEDURE: XR FOOT LT MIN 3V CLINICAL INDICATION: LT FOOT PAIN, METATARSAL HEAD, LT HEEL PAIN COMPARISON: No exams were available for comparison FINDINGS: There is minimal hallux valgus. Mild hypertrophic changes are present involving the distal aspect of the 1st metatarsal. There is cortical regularity at the region of the bony hypertrophy. There is a lucency involving the proximal and medial aspect of the proximal phalanx of the great toe. This is nonspecific and could be seen with an area of osteomyelitis or an erosive arthritic region such as gout. Please correlate with clinical parameters. No other significant anomalies are evident. There are mild osteoarthritic changes of the talonavicular and navicular cuneiform joint. IMPRESSION: There is cortical regularity at the region of the bony hypertrophy. There is a lucency involving the proximal and medial aspect of the proximal phalanx of the great toe. This is nonspecific and could be seen with an area of osteomyelitis or an erosive arthritic region such as gout. Please correlate with clinical parameters. Dictated by: Julio Donnelly MD 07/09/2020 15:42 Julio Donnelly MD in [facility] 07/09/2020 15:42
[2020-07-09 18:31] LABS: Anion Gap 10.8 mEq/L (5-15); Blood Urea Nitrogen 18 mg/dl (9-20); Calcium 9.3 mg/dl (8.4-10.2); Carbon Dioxide 26 mmol/L (22.0-30.0); Chloride 108 mmol/L (98-107); Estimated Glomerular Filt Rate 65 ml/min (>60); GFR (African American) 78 ML/MIN (>60); Glucose 85 mg/dl (74-100); Potassium 4.8 mmoL/L (3.5-5.1); Sodium 140 mmol/L (136-145); Uric Acid 8.9 mg/dl (3.5-8.5)
== END ==
PROVIDERS: PCP Internal Medicine; Visit Provider Internal Medicine
DX: M79.672 Pain in left foot (principal); M10.9 Gout, unspecified
CPT/HCPCS: 73630; 80048; 84550

== ENCOUNTER → 2020-10-07 15:45 | Outpatient (CLI) | payer MEDICARE, SELFPAY ==
--- NOTE | 2020-10-07 15:50 | XR_ITS ---
PROCEDURE: XR WRIST LT MIN 3V CLINICAL INDICATION: LT WRIST PAIN COMPARISON: CR WRR3 WRIST-3 VIEWS-RT from 03/23/2017 CR XR HAND LT MIN 3V from 10/07/2020 FINDINGS: No fracture or dislocation. No lytic or blastic change. There is normal mineralization. The joint spaces are well-preserved. No significant degenerative/arthritic changes. No erosive changes evident. Other findings:There are small radiopaque foreign bodies within the soft tissues 1 long the proximal aspect of the 1st metacarpal palmar region and another along the lateral radial styloid process region. IMPRESSION: No acute fracture. Small foreign bodies within the subcutaneous tissues Dictated by: Julio Donnelly MD 10/07/2020 16:19 Julio Donnelly MD in [facility] 10/07/2020 16:20
== END ==
PROVIDERS: PCP Internal Medicine; Visit Provider Internal Medicine
DX: M25.532 Pain in left wrist (principal); M79.642 Pain in left hand
CPT/HCPCS: 73110; 73130

== ENCOUNTER → 2020-11-12 15:01 | Outpatient (CLI) | payer MEDICARE, SELFPAY ==
--- NOTE | 2020-11-12 15:06 | XR_ITS ---
PROCEDURE: XR HAND LT MIN 3V CLINICAL INDICATION: LT HAND PAIN,SWELLING COMPARISON: CR XR HAND LT MIN 3V from 10/07/2020 FINDINGS: No fracture or dislocation. There is diffuse decreased density involving the head of the 3rd metacarpal with overlying soft tissue swelling in the metacarpophalangeal junction region on the lateral view. There is a questionable area of cortical discontinuity along the junction of the neck and head of the 3rd metacarpal dorsally. Small metallic density is present at the base of the 1st metacarpal and at the distal radial region laterally within the soft tissues consistent with small foreign bodies. IMPRESSION: Interval development of diffuse osteopenia at the head of the 3rd metacarpal with questionable area of cortical discontinuity dorsally raising the suspicion possible osteomyelitis. There is overlying soft tissue swelling. Please correlate with clinical parameters. Dictated by: Julio Donnelly MD 11/12/2020 15:29 Julio Donnelly MD in [facility] 11/12/2020 15:29
== END ==
PROVIDERS: PCP Internal Medicine; Visit Provider Internal Medicine
DX: M79.642 Pain in left hand (principal); M79.89 Other specified soft tissue disorders
CPT/HCPCS: 73130

== ENCOUNTER → 2021-03-18 11:16 | Outpatient (CLI) | payer MEDICARE, SELFPAY ==
--- NOTE | 2021-03-18 11:22 | XR_ITS ---
PROCEDURE INFORMATION: Exam: XR Left Humerus Exam date and time: 03/18/2021 11:22 AM Age: 80 years old Clinical indication: Injury or trauma; Fall; Blunt trauma (contusions or hematomas); Arm, upper; Left; Injury date: 03/17/21; Additional info: Fall on lt shoulder and arm 03/17/21 TECHNIQUE: Imaging protocol: XR Left humerus. Views: 2 or more views. COMPARISON: CR XR CHEST 2V 10/13/2019 11:14 AM FINDINGS: Bones/joints: Acute minimally displaced fracture of the left humeral surgical neck with extension into the greater tuberosity. Osteopenia. Soft tissues: Normal. IMPRESSION: Acute minimally displaced fracture of the left humeral surgical neck with extension into the greater tuberosity.
--- NOTE | 2021-03-18 11:22 | XR_ITS ---
PROCEDURE INFORMATION: Exam: XR Left Elbow Exam date and time: 03/18/2021 11:22 AM Age: 80 years old Clinical indication: Injury or trauma; Fall; Blunt trauma (contusions or hematomas); Elbow; Left; Injury date: 03/17/21; Additional info: Pain in lt elbow, decreased rom TECHNIQUE: Imaging protocol: XR Left elbow. Views: 3 or more views. COMPARISON: CR XR HAND LT MIN 3V 11/12/2020 3:11 PM FINDINGS: Bones/joints: An elbow joint effusion is present. No definite fracture is identified. Medial and lateral epicondylar enthesopathy. Olecranon enthesopathy. Mild degenerative changes of the elbow. Soft tissues: Normal. IMPRESSION: Elbow joint effusion is present. No discrete fracture is seen, though the presence of an effusion could be seen with a subtle nondisplaced radial head fracture.
--- NOTE | 2021-03-18 11:22 | XR_ITS ---
PROCEDURE INFORMATION: Exam: XR Left Shoulder Exam date and time: 03/18/2021 11:22 AM Age: 80 years old Clinical indication: Injury or trauma; Fall; Blunt trauma (contusions or hematomas); Shoulder; Left; Additional info: Pain in lt shoulder, decreased rom TECHNIQUE: Imaging protocol: XR Left shoulder. Views: 2 or more views. COMPARISON: CR XR CHEST 2V 10/13/2019 11:14 AM FINDINGS: Bones/joints: Acute minimally displaced fracture of the left humeral surgical neck with extension into the greater tuberosity. The left shoulder is located. Osteopenia. Moderate acromioclavicular and glenohumeral joint degenerative changes. Soft tissues: Normal. IMPRESSION: Acute minimally displaced fracture of the left humeral surgical neck with extension into the greater tuberosity. The left shoulder is located.
== END ==
PROVIDERS: PCP Internal Medicine; Visit Provider Internal Medicine
DX: M25.512 Pain in left shoulder (principal); M25.522 Pain in left elbow; W19.XXXA Unspecified fall, initial encounter; M25.811 Other specified joint disorders, right shoulder
CPT/HCPCS: 73030; 73060; 73080

== ENCOUNTER → 2021-04-18 08:55 | Outpatient (CLI) | payer MEDICARE, SELFPAY ==
--- NOTE | 2021-04-18 09:00 | XR_ITS ---
PROCEDURE: XR SHOULDER LT MIN 2V CLINICAL INDICATION: LT humerus fx COMPARISON: CR [id number] VIEWS from 07/31/2016 CR XR SHOULDER LT MIN 2V from 03/18/2021 FINDINGS: Impacted humeral neck fracture is once again noted with extension into the greater tuberosity overall not significantly changed. There osteoarthritic changes of the humeral head and AC joint. No evidence of dislocation. There is minimal dorsal displacement of the greater tuberosity fracture unchanged. IMPRESSION: No change in the humeral neck fracture extending into the greater tuberosity with associated osteoarthritic changes Dictated by: Julio Donnelly MD 04/18/2021 09:43 Julio Donnelly MD in [facility] 04/18/2021 09:43
== END ==
PROVIDERS: PCP Internal Medicine; Visit Provider Orthopaedic Surgery
DX: S42.302A Unspecified fracture of shaft of humerus, left arm, initial encounter for closed fracture (principal)
CPT/HCPCS: 73030

== ENCOUNTER → 2021-05-03 08:40 | Outpatient (CLI) | payer MEDICARE, SELFPAY ==
--- NOTE | 2021-05-03 09:22 | XR_ITS ---
PROCEDURE INFORMATION: Exam: XR Left Shoulder Exam date and time: 05/03/2021 9:22 AM Age: 80 years old Clinical indication: Injury or trauma; Fall; Blunt trauma (contusions or hematomas); Injury date: 04/28/2021; Injury details: Patient had previous shoulder FX in February that did not require surgery// fell again and hit same left shoulder TECHNIQUE: Imaging protocol: XR Left shoulder. Views: 2 or more views. COMPARISON: CR XR SHOULDER LT MIN 2V 04/18/2021 9:03 AM FINDINGS: Bones/joints: Similar alignment of a healing fracture involving the left humeral neck with extension into the greater tuberosity. No new fracture or change in alignment. Moderate acromioclavicular and glenohumeral joint degenerative changes. Osteopenia. Soft tissues: Normal. IMPRESSION: 1. Similar alignment of a healing fracture involving the left humeral neck with extension into the greater tuberosity. 2. No new fracture or change in alignment.
== END ==
PROVIDERS: PCP Internal Medicine; Visit Provider Internal Medicine
DX: M25.512 Pain in left shoulder (principal)
CPT/HCPCS: 73030

== ENCOUNTER 2021-05-05 10:00 | Outpatient (RCR) | payer MEDICARE, SELFPAY ==
--- NOTE | 2021-04-23 10:50 | HMH.OTOPEV ---
OT Inpatient Evaluation Rehab OT Outpatient Eval Start: 04/23/21 10:29 Freq: Status: Active Protocol: Document 04/23/21 10:30 SCOTT (Rec: 04/23/21 10:50 SCOTT [id number]) Electronically Signed By Makenna Andre, OT 04/23/21 10:30 Outpatient Therapy Subjective History Subjective History 80 year old female referred to skilled OP OT services for non operative L UE humerus fx. x-ray completed on 03/18/21 with impression acute minimally displaced fracture of the left humeral surgical neck with extension in ot the greater tuberosity. Patient is a poor historian. Per stated, Patient fell at his brother's house ~5 weeks ago. The ortho decided to go non- operative for L UE humerus fracture and complete therapy for healing. Patient's PMH: Dementia, Heart Murmur and Valvular Heart Disease. Other Medical History: Reports Arthritis. Chief Complaint Pain Symptom Type Ache Symptoms Relieved By Nothing Symptoms Aggravated By Physical Activity Prior Functional Limitations None Current Functional Limitations Reaching,Lifting Symptom Description Intermittent Level of pain today (0-10) 0 Pain scale - at its best (0-10) 4 Pain scale - at its worst (0-10) 4 Shoulder/Elbow Eval Shoulder Objective Measurements Shoulder ROM Left Shoulder Abduction Active Range of 65 Motion (degrees) Shoulder Flexion Active Range of Motion 80 (degrees) Query Text: Shoulder External Rotation Active Range 30 of Motion (degrees) Shoulder Internal Rotation Active Range 30 of Motion (degrees) pain with active ROM shoulder exam left standard Shoulder MMT Shoulder Abduction Strength Grade 3- Fair- Shoulder Flexion Strength Grade 3- Fair- Shoulder Horizontal Abduction Strength 3- Fair- Grade Shoulder Horizontal Adduction Strength 3- Fair- Grade Infraspinatus/Teres Minor Strength Grade 3- Fair- Shoulder External Rotation Strength 3- Fair- Grade Shoulder Internal Rotation Strength 3- Fair- Grade Elbow Objective Measurements OT Outpatient Assessment Impairments
== END 2021-05-05 10:05 | disposition home or self-care (01) ==
LOC: OT 10:00
PROVIDERS: PCP Internal Medicine; Visit Provider Orthopaedic Surgery
DX: S42.302D Unspecified fracture of shaft of humerus, left arm, subsequent encounter for fracture with routine healing (principal)
CPT/HCPCS: 97010; 97014; 97140; 97165; 97530; G0283

== ENCOUNTER → 2021-05-09 11:07 | Outpatient (CLI) | payer MEDICARE, SELFPAY ==
--- NOTE | 2021-05-09 11:14 | XR_ITS ---
FINAL REPORT CLINICAL HISTORY: S/P FALL L ELBOW PAIN COMPARISON: March 18, 2021 FINDINGS: LEFT ELBOW 3 views were obtained. There is minimal irregularity of the lateral radial head. Nondisplaced fracture cannot be excluded. There are mild degenerative changes. There is chronic calcification medial to the humeral epicondyle. There is a probable joint effusion or hemarthrosis. IMPRESSION: Probable joint effusion or hemarthrosis with minimal irregularity of the lateral radial head. Nondisplaced fracture cannot be excluded. If indicated, follow-up radiographs or MRI. Reviewed, Interpreted and Dictated by Lb Bautista III, MD Transcribed by Lux Hernandez Authenticated by Lb Bautista III, MD on 05/09/2021 12:32:14 PM [facility]
== END ==
PROVIDERS: PCP Internal Medicine; Visit Provider Internal Medicine
DX: M25.552 Pain in left hip (principal); W19.XXXA Unspecified fall, initial encounter
CPT/HCPCS: 73080

== ENCOUNTER → 2021-05-30 10:53 | Outpatient (CLI) | payer MEDICARE, SELFPAY ==
--- NOTE | 2021-05-30 11:01 | XR_ITS ---
FINAL REPORT CLINICAL HISTORY: fall h/o shoulder fx COMPARISON: May 09, 2021 FINDINGS: LEFT ELBOW 3 views were obtained. There are mild degenerative changes. No definite fracture is seen. The joint effusion or hemarthrosis has partially improved. IMPRESSION: Partially improved joint effusion or hemarthrosis without a definite fracture visualized. Reviewed, Interpreted and Dictated by Lb Bautista III, MD Transcribed by Lux Hernandez Authenticated by Lb Bautista III, MD on 05/30/2021 12:47:35 PM [facility]
--- NOTE | 2021-05-30 11:01 | XR_ITS ---
FINAL REPORT CLINICAL HISTORY: fall h/o of shoulder fx COMPARISON: May 03, 2021; April 18, 2021 FINDINGS: LEFT SHOULDER Three views were obtained. There is a horizontal fracture through the scapula extending to the glenoid. There is no callus formation. The bony alignment is stable. There is deformity of the proximal humerus that is also stable in may represent a chronic fracture. There is mild AC joint degenerative change. IMPRESSION: Horizontal scapular fracture with stable alignment. Deformity of the proximal humerus may represent a chronic fracture. Reviewed, Interpreted and Dictated by Lb Bautista III, MD Transcribed by Lux Hernandez Authenticated by Lb Bautista III, MD on 05/30/2021 12:47:30 PM [facility]
== END ==
PROVIDERS: PCP Internal Medicine; Visit Provider Internal Medicine
DX: M25.512 Pain in left shoulder (principal); M25.522 Pain in left elbow; W19.XXXA Unspecified fall, initial encounter
CPT/HCPCS: 73030; 73080

== ENCOUNTER → 2021-06-13 07:46 | Outpatient (CLI) | payer MEDICARE, SELFPAY ==
--- NOTE | 2021-06-13 07:54 | XR_ITS ---
FINAL REPORT CLINICAL HISTORY: left humerus fx,, FINDINGS: LEFT SHOULDER 3 views of the left shoulder were obtained. There is no acute fracture dislocation. There are mild hypertrophic changes in the acromioclavicular joint. There is moderate narrowing of the glenohumeral joint. There are osteophytes along the inferior margin of the humeral head. Visualized joint spaces are normally aligned. Soft tissues are unremarkable. IMPRESSION: Hypertrophic changes with no acute bony abnormality. Reviewed, Interpreted and Dictated by Mani Beard MD Transcribed by Roula Campbell Authenticated by Mani Beard MD on 06/13/2021 10:36:18 AM [facility]
== END ==
PROVIDERS: PCP Internal Medicine; Visit Provider Orthopaedic Surgery
DX: S42.302A Unspecified fracture of shaft of humerus, left arm, initial encounter for closed fracture (principal)
CPT/HCPCS: 73030

== ENCOUNTER 2022-02-15 00:14 | Emergency (ER) | payer MEDICARE, SELFPAY ==
[2022-02-15] VITALS (11 sets, daily range): BP systolic 116–157; BP diastolic 47–72; PULSE 80–97; RESP 20–21; TEMP 36.9–37.7; O2SAT 95–98; BMI 28.2
--- NOTE | 2022-02-15 00:16 | XR_ITS ---
PROCEDURE INFORMATION: Exam: XR Chest Exam date and time: 02/15/2022 12:37 AM Age: 81 years old Clinical indication: Fever TECHNIQUE: Imaging protocol: Radiologic exam of the chest. Views: 1 view. COMPARISON: 1. CR XR CHEST 2V 10/13/2019 11:[address] CHEST WO CON 09/10/2019 5:39 AM FINDINGS: Lungs: The lungs are adequately inflated. No focal consolidation. Pleural spaces: No pneumothorax or pleural effusion. Heart/Mediastinum: The cardiomediastinal silhouette has normal size and contour. Bones/joints: No acute osseous abnormality. Intraperitoneal space: The visualized abdomen is unremarkable. IMPRESSION: No acute cardiopulmonary disease.
--- NOTE | 2022-02-15 00:19 | HMH.EDGENADL ---
Discharge Plan Disposition Patient Disposition: Xfer Other Condition: Serious Referrals Follow up/Referrals: Constantine Palacio MD [Primary Care Provider] - See instructions Clinical Impressions Clinical Impression: Intraparenchymal hemorrhage of brain Discharge ED Provider: Margaret Groves Adult HPI General Chief complaint: Weakness Stated complaint: Fever, Confusion Time Seen by Provider: 02/15/22 00:16 History of Present Illness HPI narrative: 81-year-old male presenting to the emergency department by EMS. Family called for him tonight. They said over the last few days he has gotten more confused. He suffers from dementia. Has been urinating frequently. Urine has been foul-smelling. He has been touching his private parts, appears to be in pain. Tonight, had a fever. When EMS arrived he was pleasantly confused. Temperature 100.9 ?F. He has been eating and drinking well. Patient denies headache, neck pain, chest pain, abdominal pain. No nausea, vomiting, diarrhea. No rashes on his skin. Related Data Allergies Allergy/AdvReac Type Severity Reaction Status Date / Time No Known Allergies Allergy Verified 06/13/21 09:10 PFSH PFS Social History Smoking Status: Former smoker alcohol intake: former substance use type: denies use current occupational status: retired Travel in the last 8 weeks: None household members: spouse housing: house current occupational exposures/hazards: No ROS Obtained: Yes All systems reviewed & no additional complaints except as documented Constitutional Constitutional: Reports fever(s), Denies headache(s) and Denies poor appetite ENT Ears, Nose, Mouth, and Throat: Denies dizziness, Denies headache(s) and Denies sore throat Cardiovascular Cardiovascular: Denies chest pain, Denies dyspnea, Reports edema and Reports leg edema Respiratory Respiratory: Denies cough, Denies dyspnea and Denies wheezing Gastrointestinal Gastrointestingal: Denies abdominal pain, nausea or vomiting Genitourinary Male Genitourinary: Denies hematuria and Reports urinary frequency Integumentary/Breasts Skin/Breast: Denies dry skin and Denies rash Neurologic Neurologic: Denies dizziness and Denies headache(s) Allergic/Immunologic Allergic/Immunologic: Denies wheezing Physical Exam General General appearance: alert and in no apparent distress Head Head exam: atraumatic and normocephalic Eye Eye exam: Present normal appearance; Absent conjunctival redness ENT ENT exam: Present normal exam and mucous membranes moist Chest Chest inspection: Present normal inspection and symmetric chest wall rise Respiratory Respiratory exam: Present normal lung sounds bilaterally; Absent respiratory distress or wheezes Cardiovascular Cardiovascular exam: Present regular rate and normal rhythm Abdominal Exam Abdominal exam: Present soft; Absent distention or tenderness Extremities Exam Extremities exam: Present normal inspection and edema (2+ pitting lower extremity, symmetric bilaterally) Neurological Exam Neurological exam: Present alert; Absent oriented X3 (Oriented to person only) Psychiatric Psychiatric exam: Present normal affect and normal mood Skin Skin exam: Present warm, dry and other ([place] complexion) Medical Decision Making Medical Records Medical records reviewed: Yes I reviewed the patient's medical records. [place] Inquiry Pt receiving controlled substance: No Vital Signs: 02/15/22 00:14 02/15/22 00:43 02/15/22 01:00 Temperature 99.9 F H Temperature Source Oral Pulse Rate 80 88 Pulse Rate [Right] 97 H Respiratory Rate 20 Blood Pressure 130/47 L 130/72 Blood Pressure [Right Arm] 130/67 Blood Pressure Mean 91 Blood Pressure Mean [Right Arm] 88 02 Sat by Pulse Oximetry 97 98 96 Oxygen Delivery Method Room Air Room Air 02/15/22 01:30 02/15/22 02:00 02/15/22 02:30 Temperature Temperature Source Pulse Rate 93 H 92 H 92 H Pulse Rate [Right]
[2022-02-15 00:34] LABS: Appearance,Urine CLEAR (Clear); Bilirubin,Urine Negative (Negative); Blood, Urine Negative (Negative); Color,Urine YELLOW (Yellow); Glucose,Urine (UA) Negative (Negative); Ketones,Urine TRACE (Negative); Leukocyte Esterase,Urine Negative (Negative); Microscopic, Urine URINE MICROSCOPIC (MICROSCOPIC); Nitrate,Urine Negative (Negative); Protein,Urine 1+ (Negative)
--- NOTE | 2022-02-15 01:19 | CT_ITS ---
PROCEDURE INFORMATION: Exam: CT Head Without Contrast Exam date and time: 02/15/2022 1:45 AM Age: 81 years old Clinical indication: Altered mental status/memory loss and other: Incontinence; Confusion or disorientation; Additional info: AMS, incontinent TECHNIQUE: Imaging protocol: Computed tomography of the head without contrast. Radiation optimization: All CT scans at this facility use at least one of these dose optimization techniques: automated exposure control; mA and/or kV adjustment per patient size (includes targeted exams where dose is matched to clinical indication); or iterative reconstruction. COMPARISON: CT HEAD/BRAIN WO CON 09/10/2019 5:16 AM FINDINGS: Brain: 9 mm focus of intraparenchymal hemorrhage within the posterior aspect of the left parietal lobe (axial series image 50). Increased hypoattenuation of the white matter within the within the left parietal and occipital lobes. There is mild diffuse enlargement CSF containing spaces consistent with global parenchymal volume loss. No midline shift or significant mass effect. Cerebral ventricles: No hydrocephalus. Paranasal sinuses: Mucosal retention cysts within the right maxillary sinus. Mastoid air cells: The mastoid air cells are clear. Orbital cavities: The orbits are unremarkable. Bones/joints: No acute fracture. Soft tissues: The superficial soft tissues are normal. IMPRESSION: 1. A 9 mm focus intraparenchymal hemorrhage within the left parietal lobe. Increased hypoattenuation predominantly within the left parietal lobe may represent component of cerebral edema. Recommend correlation with history/physical exam and consider further evaluation with MRI as small mass cannot be excluded. 2. No midline shift or significant mass effect. 3. Other findings as above.
[2022-02-15 01:42] LABS: Basophils # 0.1 K/mm3 (0-0.2); Basophils % 0.5 % (0.1-2.0); Coronavirus 19, PCR Not Detected (NotDetected); Eosinophils % 0.3 % (0.1-12.0); Hematocrit 46.8 % (42.0-52.0); Hemoglobin 14.9 g/dL (14.1-18.0); Influenza A, PCR Not Detected (NotDetected); Influenza B, PCR Not Detected (NotDetected); Lymphocytes # 1.1 K/mm3 (0.7-4.5); Lymphocytes % 10.5 % (10-50); Mean Corpuscular HGB Conc 31.8 g/dL (31.8-35.4); Mean Corpuscular Hemoglobin 30.2 pg (27.0-31.2); Mean Corpuscular Volume 95.1 fl (80-94); Monocytes # 0.8 K/mm3 (0.1-1.0); Monocytes % 8.4 % (1.7-9.3); Neutrophils % 80.3 % (37.0-80.0); Platelet Count 233 K/mm3 (142-424); Red Blood Count 4.92 M/mm3 (4.60-6.20); Red Cell Distribution Width 14.7 % (11.5-17.5)
[2022-02-15 01:49] LABS: Bacteria,Urine Trace /lpf; RBC,Urine Occasional #/hpf (0-3)
[2022-02-15 01:51] LABS: Alanine Aminotransferase 19 U/L (12-78); Albumin Level 3.7 g/dl (3.5-5.0); Albumin/Globulin Ratio 1.4 (1.1-1.8); Alkaline Phosphatase 67 U/L (38-126); Anion Gap 13.2 mEq/L (5-15); Aspartate Amino Transferase 23 U/L (17-59); Bilirubin,Total 1.5 mg/dl (0.2-1.3); Blood Urea Nitrogen 20 mg/dl (9-20); Calcium 9.1 mg/dl (8.4-10.2); Carbon Dioxide 30 mmol/L (22.0-30.0); Chloride 106 mmol/L (98-107); Creatinine Clearance Estimated 68 mL/min (50-200); Estimated Glomerular Filt Rate 58 ml/min (>60); GFR (African American) 70 ML/MIN (>60); Globulin 2.7 g/dL (1.3-3.2); Glucose 110 mg/dl (74-100); Potassium 4.2 mmoL/L (3.5-5.1); Sodium 145 mmol/L (136-145); Total Protein,Serum 6.4 g/dl (6.3-8.2)
[2022-02-15 02:08] LABS: Procalcitonin 0.198 ng/mL (0.0-2.0)
--- NOTE | 2022-02-15 02:46 | PC.NURSE ---
spoke with Jeff @ [facility] and they are going to check bed status and call back
--- NOTE | 2022-02-15 03:24 | PC.NURSE ---
ER speaking with Dr from [facility] at this time
--- NOTE | 2022-02-15 03:57 | PC.NURSE ---
Called [facility] for pt transport to the [facility] in [place]
--- NOTE | 2022-02-15 03:57 | PC.NURSE ---
Called pt to notify of pt transfer
== END 2022-02-15 05:11 | disposition other institution (70) ==
PROVIDERS: Emergency Provider Emergency Medicine; PCP Internal Medicine
DX: I61.9 Nontraumatic intracerebral hemorrhage, unspecified (principal); F03.90 Unspecified dementia, unspecified severity, without behavioral disturbance, psychotic disturbance, mood disturbance, and anxiety
CPT/HCPCS: 51702; 70450; 71045; 80053; 81001; 83605; 84145; 85025; 87040; 96365; 96366; 96367; 99281; C9803; J0696; U0003; U0005